=== PATIENT | female | born 1975 | race Caucasian/White ===

== ENCOUNTER 2017-03-25 20:25 | Inpatient (IN) | payer BC ==
[~2017-03-25] VITALS: Ht 167.6 cm; Wt 76.7 kg
[~2017-03-25 20:25] MED LIST: ACETAMINOPHEN 325 MG TAB PO PRN; AUGM500T7 PO; BENL120I IM; CHOLPOW PO; CYMB30CA PO; DEXILANT PO; DIAZ5TAB PO; DICY10CA12 PO; HYDR-3533 PO; LAMO25 PO; MAGNESIUM HYDROXIDE SUSP 30 ML CUP PO PRN; METF1000 PO; METO25TA3 PO; MYCO500 PO; PLAQ200T PO; PRED5TAB PO; PRIM50TA5 PO; SODIUM CHLOR 0.9% 1000 ML INJ 1,000 ML IV ONE; SODIUM CHLOR 0.9% 1000 ML INJ 1,000 ML IV SCH; SODIUM CHLORIDE 0.9% FLUSH 10 ML FLUSH IV FLUSH PRN; SPIR50TA PO; TRAM50TA PO; VALA500T PO; VIST50CA PO; ZYPR2.5T2 PO
[2017-03-25 20:30] VITALS: BP 143/96; PULSE 100; RESP 20; TEMP 97.8; O2SAT 95
[2017-03-25] MEDS: SODIUM CHLORIDE 0.9% FLUSH 10 ML FLUSH IV FLUSH SCH (21:57)
[2017-03-25 22:25] VITALS: O2SAT 99
[2017-03-25 22:55] LABS: LACTIC ACID GHOST NOT REPORTABLE
[2017-03-25] MEDS: ENOXAPARIN SODIUM 40 MG/0.4 ML SYRINGE SQ SCH (23:42)
[2017-03-25] MEDS: SODIUM CHLOR 0.9% 1000 ML INJ 1,000 ML IV SCH (23:43)
[2017-03-25] MEDS: PIPERACIL-TAZO 4.5 GM PREMIX 100 ML IV SCH (23:43)
[2017-03-26] VITALS: BP 156/96; PULSE 122; RESP 22; TEMP 97.1; O2SAT 100
[2017-03-26] MEDS: PRIMIDONE 50 MG TAB PO SCH ×4 (01:15→18:11)
[2017-03-26] MEDS: OLANZapine 2.5 MG TAB PO SCH ×2 (01:15→21:28)
[2017-03-26] MEDS: lamoTRIgine 25 MG TAB PO SCH ×3 (01:15→21:31)
[2017-03-26] MEDS: ONDANSETRON HCL 4 MG/2 ML VIAL IV PUSH PRN ×3 (01:23→21:29)
[2017-03-26] MEDS: MORPHINE SULFATE 4 MG/ML INJ IV PUSH PRN ×4 (01:26→21:29)
[2017-03-26] MEDS: PIPERACIL-TAZO 4.5 GM PREMIX 100 ML IV SCH ×4 (04:53→22:05)
[2017-03-26] MEDS: SODIUM CHLOR 0.9% 1000 ML INJ 1,000 ML IV SCH (04:54)
[2017-03-26 08:00] VITALS: BP 119/74; PULSE 110; RESP 18; TEMP 99.8; O2SAT 94
[2017-03-26] MEDS ORDERED: GLUCAGON 1 MG/ML VIAL OTHER PRN (08:30)
[2017-03-26] MEDS ORDERED: DEXTROSE 50% IN WATER 50 ML VIAL(D50) IV PRN (08:30)
--- NOTE | 2017-03-26 08:30 | HHI.HP ---
[facility] [place] [facility] Primary Care Physician Non-Staff Admission Diagnosis Diagnoses: (1) Severe sepsis Diagnosis: Principal (2) Abdominal pain Diagnosis: Principal (3) Diarrhea in adult patient Diagnosis: Principal (4) Lactic acidosis Diagnosis: Principal (5) Azotemia Diagnosis: Principal (6) Leukocytosis Diagnosis: Principal (7) Lupus Diagnosis: Secondary (8) Diabetes Diagnosis: Secondary (9) Hypertension Diagnosis: Secondary Chief Complaint: Abdominal pain Travel History International Travel<30 Days: No Contact w/Intl Traveler <30 Da: No Sepsis Criteria SIRS Criteria (2 or more): Heart rate over 90, WBC > 81512, < 4000 or > 10% bands Sepsis Criteria (SIRS+source): Infect source susp/known Severe Sepsis (+one): Lactate >2 Criteria Outcome: Meets severe sepsis criteria History of Present Illness Written by Adithya Lynn, acting as scribe for Dr. Ochoa on 03/26/17 at 08: 12. 41-year-old female with rather complex medical history with hypertension, diabetes, lupus, Raynaud syndrome, Sjgren syndrome, on immunosuppressive drugs who presented to ER because of acute worsening of abdominal discomfort. Patient indicates that she was originally treated for her condition Sunday of last week where she went to urgent care center and found to have sinusitis and hematuria. Patient was given a dose of Rocephin and followed with Augmentin. Patient states that her abdominal pain had been tolerable in the lower abdomen until yesterday morning when she was woke from sleep because of severe pain that started in her middle lower back and radiating around both flanks into her lower abdomen. The pain was a 10/10 on a pain scale. She indicates that the urgent care physician notified her that if her pain worsen that she should go to the emergency department. The patient states that the pain was a sharp pain. Without any crescendo type pain. She describes the pain as if she is giving . The patient indicates that she has had associated watery diarrhea, however she does not indicate that there is any foul smell. She has had nausea. Her diarrhea was associated with her bout of vomiting. She denies any fever, chills, hematochezia, melena. With the patient's rather complex autoimmune disorders. She indicates that she is in tune with her symptoms and usually knows when she is developing any type of infections. The patient indicates that she has had history of colitis with hematochezia in the past. She indicates that she just had a colonoscopy done 2 months ago and was told that she had some hemorrhoids. The patient also endorses some chest pain with deep breathing. She says it feels better when she leans forward. The patient had evaluation done emergency department found to have severe sepsis. Patient was admitted to the hospital for further evaluation and management. Review of Systems Constitutional: DENIES: Diaphoretic episodes, Fatigue, Fever, Weight gain, Weight loss, Chills, Dizziness, Change in appetite, Night Sweats Eyes: DENIES: Blurred vision, Diplopia, Eye inflammation, Eye pain, Vision loss , Double Vision Ears, nose, mouth, throat: DENIES: Vertigo, Nasal discharge, Throat pain, Ear Pain, Running Nose, Sinus Pain Respiratory: DENIES: Apneas, Cough, Snoring, Wheezing, Hemoptysis, Sputum production, Shortness of breath Cardiovascular: DENIES: Chest pain, Palpitations, Syncope, Dyspnea on Exertion , Lower Extremity Edema, Orthopnea Gastrointestinal: COMPLAINS OF: Abdominal pain, Diarrhea, Nausea, DENIES: Black stools, Bloody stools, Constipation, Vomiting, Difficulty Swallowing, Anorexia Neurologic: DENIES: Abnormal gait, Headache, Localized weakness, Paresthesias, Seizures, Speech Problems, Tremor, Poor Balance Past Family Social History Past Medical History Hypertension Diabetes Lupus Raynaud syndrome Sjgren disease History of colitis Pericarditis Past Surgical History Tonsillectomy Colonoscopy 2 months ago 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 Cholecystectomy Umbilical hernia repair Reported Medications Reported Meds & Active Scripts Active Reported Lortab (Hydrocodone-Acetaminophen) 5-325 Mg Tab 1 Tab PO Q4H PRN Benlysta Inj (Belimumab) 120 Mg Inj 170 Mg IM MONTHLY Cymbalta DR (Duloxetine HCl) 30 Mg Capdr 30 Mg PO DAILY Tramadol (Tramadol HCl) 50 Mg Tab 50 Mg PO BID PRN Diazepam 5 Mg Tab 5 Mg PO HS Cholestyramine (Bulk) 1 Powd 1 Pack PO BID Cellcept (Mycophenolate Mofetil) 500 Mg Tab 1,000 Mg PO HS Cellcept (Mycophenolate Mofetil) 500 Mg Tab 500 Mg PO AM Valacyclovir (Valacyclovir HCl) 500 Mg Tab 500 Mg PO DAILY Vistaril (Hydroxyzine Pamoate) 50 Mg Cap 100 Mg PO HS Metformin (Metformin HCl) 1,000 Mg Tab 1,000 Mg PO BIDPC With meals Dicyclomine (Dicyclomine HCl) 10 Mg Cap 10 Mg PO TID [Dexilant ] 50 Mg PO DAILY Metoprolol Tartrate 25 Mg Tab 25 Mg PO BID Plaquenil (Hydroxychloroquine Sulfate) 200 Mg Tab 200 Mg PO BID Take with food Zyprexa (Olanzapine) 2.5 Mg Tab 2.5 Mg PO HS Prednisone 5 Mg Tab 15 Mg PO DAILY Augmentin (Amoxicillin-Clavulanate) 500-125 mg Tab 500 Mg PO BID Primidone 50 Mg Tab 50 Mg PO TID Spironolactone 50 Mg Tab 50 Mg PO BIDPC Lamictal (Lamotrigine) 25 Mg Tab 50 Mg PO BID Allergies: Coded Allergies: Flu Vaccine (Verified Allergy, Severe, Anaphylaxis, 03/25/17) Mushroom (Verified Allergy, Severe, Anaphylaxis, 03/25/17) Gluten (Verified Allergy, Intermediate, N/V/D, 03/25/17) Sulfa (Verified Allergy, Unknown, LUPUS FLARE UP, 03/25/17) Family History Reviewed is significant for celiac disease, stroke on father's side of the family, heart disease in both sides of the family. Social History Patient denies any tobacco or illicit drugs. Patient does drink alcohol occasionally. Physical Exam Vital Signs Vital Signs Date Time Temp Pulse Resp B/P Pulse Ox O2 Delivery O2 Flow Rate FiO2 03/26/17 00:00 97.1 122 22 156/96 100 03/25/17 22:25 99 21 03/25/17 20:30 97.8 100 20 143/96 95 Physical Exam GENERAL: Well-developed, well-nourished, in no acute distress. alert and orientated HEENT: Head is normocephalic without any lesions or masses noted. Facial features are symmetric. Eyes: Pupils equal round reactive to light. Extraocular muscles are intact. Conjunctivae were clear. Oropharyngeal: Pharynx without any erythema edema. Tongue is midline without deviation. Buccal mucosa is moist without any masses or lesions NECK: Supple without any masses. Trachea midline no deviation. No JVD, no bruits are appreciated. Cervical lymphadenopathy appreciated. CARDIAC: Tachycardic. S1/S2 are heard. No murmurs gallops or rubs. LUNGS: Clear to auscultation bilaterally. No wheeze, rhonchi or rales. No use of accessory muscles on inspiration or expiration. ABDOMEN: Soft, no single point tenderness. Rather diffuse generalized tenderness.. Nondistended. Bowel sounds heard in all 4 quadrants. No organomegaly or masses. Negative rebound, negative guarding EXTREMITIES: No edema, pulses are equal bilaterally. No cyanosis or clubbing NEUROLOGY: Mood and affect appear appropriate. Cranial nerves II through XII grossly intact. Muscle strength 5/5 in upper and lower extremities bilaterally. Deep tendon reflexes are 2+ in upper and lower extremities bilaterally. Laboratory Laboratory Tests Test 03/25/17 03/26/17 20:49 01:20 Lactic Acid Level 3.5 3.5 Imaging Last Impressions Chest X-Ray 03/26/17 0000 Signed Impressions: Service Date/Time: Sunday, March 26, 2017 10:04 - CONCLUSION: No acute cardiopulmonary abnormality is identified. Shady García MD Septic Shock Reassessment Heart: Regular rate and rhythm Lungs: Clear Skin: Warm, Moist Peripheral Pulses: Bounding Right Radial Bounding Left Radial Capillary Refill: Brisk, <2 seconds Assessment and Plan Assessment and Plan Severe sepsis Patient criteria on admission with leukocytosis, bandemia, tachycardia, lactic acidosis, abdominal pain with an episode of watery diarrhea Patient was treated empirically with Zosyn. Will add Flagyl. Blood cultures are pending Urinalysis did not indicate any infection CT the abdomen does not indicate any acute abnormality indicative of infection Continue to trend lactic acid level Infectious disease has been consulted Hold [employer] for now. Continue Plaquenil and prednisone Abdominal pain, with watery diarrhea Unclear of etiology at this time. All etiology are still on the table to include infection, inflammatory, ischemia Continue pain control Gastroenterology has been consulted for recommendations CT scan does not indicate any significant abnormality other than 4.1 cm left ovarian cyst, small left inguinal hernia containing fat, small to moderate size hiatal hernia Many need to perform CTA/MRA for evaluation of ischemic bowel Check stool studies to include C. difficile, stool culture, stool WBCs, ova parasite Lactic acidosis Could be secondary to infection versus ischemia Continue trend lactic acid level. Improved Leukocytosis Could be secondary to chronic prednisone use, infection Continue monitor CBC Azotemia, unknown chronicity Water the patient states that she has been worked up with a poultry pinner and it may be secondary to lupus or diabetes. CT of the abdomen does not indicate any renal abnormality Continue IV fluids Monitor renal function Avoid nephrotoxins Diabetes Accu-Cheks with sliding scale insulin Check hemoglobin A1c Hypertension Continue home medications DVT prevention Lovenox, sequential compression devices Physician Certification 2 Midnight Certification Type: Admission for Inpatient Services Order for Inpatient Services The services are ordered in accordance with Medicare regulations or non- Medicare payer requirements, as applicable. In the case of services not specified as inpatient-only, they are appropriately provided as inpatient services in accordance with the 2-midnight benchmark. Estimated LOS (days): 2 days is the estimated time the patient will need to remain in the hospital, assuming treatment plan goals are met and no additional complications. Post-Hospital Plan: Not yet determined Notes: This note was transcribed by dave Lynn. I, Dr. Eyal Ochoa personally performed the history, physical exam, and medical decision making; and confirmed the accuracy of the information in the transcribed note. Authenticated by Dr. Eyal Ochoa on 03/26/17 at 12:11. Problem Qualifiers (1) Abdominal pain: Qualified Code: R10.84 - Generalized abdominal pain (2) Leukocytosis: Qualified Code: D72.825 - Bandemia (3) Lupus: Qualified Code: M32.9 - Systemic lupus erythematosus, unspecified SLE type, unspecified organ involvement status (4) Diabetes: Qualified Code: E11.8 - Type 2 diabetes mellitus with complication, without long-term current use of insulin (5) Hypertension: Qualified Code: I15.9 - Secondary hypertension Adithya Lynn March 26, 2017 08:30 Eyal Ochoa DO March 26, 2017 12:11
[2017-03-26 08:51] LABS: CHLORIDE 110 MEQ/L (98-107); POTASSIUM 3.8 MEQ/L (3.5-5.1); SODIUM (NA) 145 MEQ/L (136-145)
[2017-03-26 08:56] LABS: ANION GAP 10 MEQ/L (5-15); BICARBONATE 25.4 MEQ/L (21.0-32.0); BLOOD UREA NITROGEN 8 MG/DL (7-18)
[2017-03-26 08:59] LABS: ALT (GPT) 57 U/L (10-53); AST (GOT) 40 U/L (15-37); GLOMERULAR FILTRATION RATE 41 ML/MIN (>89)
[2017-03-26 09:00] LABS: TOTAL BILIRUBIN ADULT 0.6 MG/DL (0.2-1.0)
[2017-03-26 09:02] LABS: ALKALINE PHOSPHATASE 45 U/L (45-117)
[2017-03-26] MEDS: HYDROXYCHLOROQUINE SULFATE 200 MG TAB PO SCH ×2 (09:15→21:00)
[2017-03-26] MEDS ORDERED: MYCOPHENOLATE MOFETIL 500 MG TAB PO SCH ×2 (09:15→21:00)
--- NOTE | 2017-03-26 10:13 | RADHPO ---
EXAM DATE/TIME: 03/26/2017 10:04 [facility] COMPARISON: No previous studies available for comparison. INDICATIONS : Sepsis MEDICAL HISTORY : Systemic Lupus SURGICAL HISTORY : None. ENCOUNTER: [facility] ACUITY: 1 day PAIN SCORE: 0/10 LOCATION: FINDINGS: Portable AP view of the chest demonstrates a normal-sized cardiac silhouette. No effusion, consolidat ion, or pneumothorax is visualized. The bones and soft tissues demonstrate no acute abnormality. Lung s are underinflated. CONCLUSION: No acute cardiopulmonary abnormality is identified. Shady García MD on March 26, 2017 at 10:11 Board Certified Radiologist. This report was verified electronically.
[2017-03-26] MEDS: valACYclovir HCL 500 MG TAB PO SCH (10:34)
[2017-03-26] MEDS: METOPROLOL TARTRATE 25 MG TAB PO SCH ×2 (10:34→21:00)
[2017-03-26] MEDS: SODIUM CHLOR 0.45% 1000 ML INJ 1,000 ML IV SCH ×2 (10:34→18:00)
[2017-03-26] MEDS: metroNIDAZOLE 500 MG INJ 100 ML IV SCH ×2 (10:34→16:41)
[2017-03-26] MEDS: SODIUM CHLORIDE 0.9% FLUSH 10 ML FLUSH IV FLUSH SCH ×2 (10:35→21:00)
[2017-03-26] MEDS: predniSONE 5 MG TAB PO SCH (10:46)
[2017-03-26] MEDS: INSULIN ASPART SUPPLEMENTAL SCALE SQ SCH ×3 (11:00→21:00)
[2017-03-26 11:02] LABS: AUTOMATED NEUTROPHIL # 8.1 TH/MM3 (1.8-7.7); BASOPHIL % 0.4 % (0.0-2.0); EOSINOPHIL # 0.1 TH/MM3 (0-0.4); HEMATOCRIT 31.3 % (35.0-46.0); HEMO FLAGS DIFF FINAL; LYMPH % 20.1 % (9.0-44.0); LYMPHOCYTE # 2.3 TH/MM3 (1.0-4.8); MEAN CELL VOLUME 87.3 FL (80.0-100.0); MEAN CORPUSCULAR HGB CONC 33.3 % (32.0-36.0); MONO % 9.9 % (0.0-8.0); NEUT % 68.6 % (16.0-70.0); PLATELET COUNT 268 TH/MM3 (150-450); RED BLOOD COUNT 3.58 MIL/MM3 (4.00-5.30); RED CELL DISTRIBUTION WIDTH 13.6 % (11.6-17.2); WHITE BLOOD COUNT 11.6 TH/MM3 (4.0-11.0)
[2017-03-26 12:00] VITALS: BP 106/64; PULSE 107; RESP 18; TEMP 98.9; O2SAT 96
[2017-03-26] MEDS: DULoxetine HCl DR 30 MG CAP PO SCH (12:27)
[2017-03-26 16:00] VITALS: BP 108/80; PULSE 95; RESP 18; TEMP 97.9; O2SAT 94
--- NOTE | 2017-03-26 16:35 | PD.ID.CON ---
History of Present Illness Service ID Consult Requested By Dr Narayanan Reason for Consult severe sepsis Primary Care Physician Non-Staff Diagnoses: History of Present Illness 41 yo F with h/o severe lupus, on immunosuppression including prednisone and cellcept developped sudden onset abdominal crampy back pain and one episode of non bloody diarrea/ emesis No sick contacts + low grade fever on presentation W/u revealed lactic acidosis, sever leukcytosis, 19K+ + Hematuria x 4 weeks cystoscopy was unremarkable 2 wks ago cont to have hematuria CT A/P remarkable only for simple ovarian cyst, uncomplicated hernia, nothing acute Review of Systems Cardiovascular: COMPLAINS OF: Lower Extremity Edema Gastrointestinal: COMPLAINS OF: Abdominal pain, Diarrhea, Nausea, Vomiting Genitourinary: COMPLAINS OF: Hematuria Except as stated in HPI: all other systems reviewed are Neg Past Family Social History Allergies: Coded Allergies: Flu Vaccine (Verified Allergy, Severe, Anaphylaxis, 03/25/17) Mushroom (Verified Allergy, Severe, Anaphylaxis, 03/25/17) Gluten (Verified Allergy, Intermediate, N/V/D, 03/25/17) Sulfa (Verified Allergy, Unknown, LUPUS FLARE UP, 03/25/17) Past Medical History Hypertension Diabetes Lupus Raynaud syndrome Sjgren disease History of colitis Pericarditis Past Surgical History Tonsillectomy Colonoscopy 2 months ago 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 Social History No Tobacco. occasional social ETOH. No Illicit Drugs. Physical Exam Vital Signs Vital Signs Date Time Temp Pulse Resp B/P Pulse Ox O2 Delivery O2 Flow Rate FiO2 03/26/17 16:00 97.9 95 18 108/80 94 03/26/17 12:50 16 03/26/17 12:00 98.9 107 18 106/64 96 03/26/17 08:00 94 21 03/26/17 08:00 99.8 110 18 119/74 94 03/26/17 00:00 97.1 122 22 156/96 100 03/25/17 22:25 99 21 03/25/17 20:30 97.8 100 20 143/96 95 Physical Exam CONSTITUTIONAL/GENERAL: This is an obese nourished patient, in no apparent distress. TUBES/LINES/DRAINS: SKIN: No jaundice, rashes, or lesions. Ecchymoses on upper extremities. No wounds seen anteriorly. Skin temperature appropriate. Not diaphoretic. HEAD: Atraumatic. Normocephalic. EYES: Pupils equal and round and reactive. Extraocular motions intact. No scleral icterus. No injection or drainage. Fundi not examined. ENT: Hearing grossly normal. Nose without bleeding or purulent drainage. Throat without visible erythema, exudates, masses, or lesions. NECK: Trachea midline. Supple, nontender. CARDIOVASCULAR: Regular rate and rhythm without murmurs, gallops, or rubs. No JVD. Peripheral pulses symmetric. RESPIRATORY/CHEST: Symmetric, unlabored respirations. Clear to auscultation. Breath sounds equal bilaterally. No wheezes, rales, or rhonchi. GASTROINTESTINAL: Abdomen soft, non-tender, nondistended. No hepato-splenomegaly , or palpable masses. No guarding. Bowel sounds present. GENITOURINARY: Without palpable bladder distension. mild CTA tenderness b/l MUSCULOSKELETAL: Extremities without clubbing, cyanosis, + trace BLE edema. No joint tenderness or effusion noted. No calf tenderness. No mottling or clubbing. LYMPHATICS: No palpable cervical or supraclavicular adenopathy. NEUROLOGICAL: Awake and alert. Motor and sensory grossly within normal limits. Follows commands. Cognitively sharp. Clear speech Moves all extremities. PSYCHIATRIC: No obvious anxiety/depression. no apparent hallucinations or other psychotic thought process. Laboratory Laboratory Tests Test 03/25/17 03/26/17 03/26/17 03/26/17 20:49 01:20 07:04 10:47 Lactic Acid Level 3.5 3.5 1.8 Sodium Level 145 Potassium Level 3.8 Chloride Level 110 Carbon Dioxide Level 25.4 Anion Gap 10 Blood Urea Nitrogen 8 Creatinine 1.40 Estimat Glomerular Filtration 41 Rate Random Glucose 77 Calcium Level 7.9 Total Bilirubin 0.6 Aspartate Amino Transf 40 (AST/SGOT) Alanine Aminotransferase 57 (ALT/SGPT) Alkaline Phosphatase 45 Total Protein 6.0 Albumin 3.1 White Blood Count 11.6 Red Blood Count 3.58 Hemoglobin 10.4 Hematocrit 31.3 Mean Corpuscular Volume 87.3 Mean Corpuscular Hemoglobin 29.0 Mean Corpuscular Hemoglobin 33.3 Concent Red Cell Distribution Width 13.6 Platelet Count 268 Mean Platelet Volume 6.5 Neutrophils (%) (Auto) 68.6 Lymphocytes (%) (Auto) 20.1 Monocytes (%) (Auto) 9.9 Eosinophils (%) (Auto) 1.0 Basophils (%) (Auto) 0.4 Neutrophils # (Auto) 8.1 Lymphocytes # (Auto) 2.3 Monocytes # (Auto) 1.1 Eosinophils # (Auto) 0.1 Basophils # (Auto) 0.0 CBC Comment DIFF FINAL Differential Comment Troponin I 0.02 Result Diagram: 03/26/17 1047 03/26/17 0704 Imaging Last Impressions Chest X-Ray 03/26/17 0000 Signed Impressions: Service Date/Time: Sunday, March 26, 2017 10:04 - CONCLUSION: No acute cardiopulmonary abnormality is identified. Shady García MD Assessment and Plan Assessment and Plan Lupus, immunosuppressed Hematuria, liklely 2/2 gromeluronephritis, doubt UTI - - renal insufficiency - needs fu c mandrel maker; prob lupus nephritis Sepsis ? FUO: r/o infectious ethiology Acute gastrointestinal illness (nausea, vomiting , diarrhea) Recent abx exposure (1.5 week ago for acute sinusitis) - at risk for C.diff - agree with material handling equipment stevedore rec's to chk stool for pathogens, O&P, C.diff - avoid nephrotoxins - fu P w/u - dc zosyn if bl clx neg - change flagyl to Stacey Bolton MD March 26, 2017 16:35
--- NOTE | 2017-03-26 17:38 | MB ---
cc: LEONIDAS MERCEDES MD DATE OF CONSULTATION: 03/26/2017. REASON FOR CONSULTATION: Abdominal pain. HISTORY OF PRESENT ILLNESS: This is a 41-year-old female patient who has multiple medical conditions including systemic lupus erythematosus (SLE), hypertension, diabetes, Raynaud's phenomena, Sj gren's syndrome. She is chronically on immune suppressive medication including chronic use of steroid. She presented to the emergency room because of severe and sudden worsening of her abdominal pain. The pain was described as mostly in the loins bilaterally and radiating to her lower abdomen. This pain was described as colicky in nature. The pain was associated with bowel movement described as a little bit softer stool but no blood, mucus or undigested food. The stool was described otherwise as foul-smelling. The patient also complains of nausea and occasional vomiting. No fevers, chills or rigors. No other associated symptoms. The patient had similar episodes of abdominal pain in the past and was evaluated by gastroenterology from the [facility]. She had a colonoscopy several months ago and she was told it was totally normal. Subsequently she had another episode of similar abdominal pain and diarrhea where she had a CT scan that showed evidence of colitis as described by the patient. Her colitis was attributed to her lupus other than inflammatory bowel disease or infectious colitis. At the current time, the patient was found to be comfortable, but her abdominal pain is still recurring with less frequency and less in severity. GI consulted for further evaluation. REVIEW OF SYSTEMS: All fourteen elements in the review of systems negative except for the ones mentioned in the history of present illness. PAST MEDICAL HISTORY: 1. Hypertension. 2. Diabetes. 3. Lupus. 4. Raynaud's syndrome. 5. Sj gren's disease. 6. Colitis of unknown type. 7. Pericarditis. PAST SURGICAL HISTORY: 1. Tonsillectomy. 2. Colonoscopy within the last few months. 3. Mastectomy for left breast due to ductal abnormality. 4. Cholecystectomy. 5. Umbilical hernia repair. MEDICATIONS: 1. Cholestyramine. 2. CellCept. 3. Valacyclovir. 4. Metformin. 5. Tramadol. 6. Cymbalta. 7. Lortab. 8. Diazepam. 9. Dicyclomine. 10. Metoprolol. 11. Plaquenil. 12. Zyprexa. 13. Prednisolone. 14. Primidone. 15. Spironolactone. 16. Lamictal. ALLERGIES: 1. MUSHROOMS. 2. GLUTEN. 3. SULFA. FAMILY HISTORY: Significant for celiac disease, cerebrovascular disease in her father. PHYSICAL EXAMINATION: GENERAL: On examination, the patient was found to be comfortable, not in distress or in pain, hemodynamically stable. VITAL SIGNS: Stable. Blood pressure 140/95, respiratory rate of 18, pulse of 100, temperature of 97.8. HEAD AND NECK: Atraumatic and normocephalic. Pupils equal and reactive to light. Supple neck. No lymphadenopathy. No thyromegaly. CHEST: Clear to auscultation bilaterally. No crackles or wheezes. HEART: Regular rate and rhythm. No murmurs. ABDOMEN: Abdomen soft and nontender. No hepatosplenomegaly. No palpable masses. No rebound or rigidity. EXTREMITIES: Normal pulses. No edema. NEUROLOGICAL EXAMINATION: Nonfocal. Cranial nerves II through XII are grossly intact. No motor or sensory deficit. ASSESSMENT AND PLAN: A 41-year-old female patient who presented with the following problems: 1. Bilateral flank pain radiating to her lower abdomen of several months duration but recent worsening of her symptoms requiring immediate attention in the emergency room. 2. History of colitis by CT scan as reported to the patient. Colonoscopy two months ago reported as normal. 3. Chronic use of steroids and other immune-suppressive medications. 4. Multiple autoimmune disorders. RECOMMENDATIONS: Based on the above findings with a recent colitis by CT and negative for colonoscopy and chronic use of immune suppressive medication, would consider infectious colitis as the priority and more likely cause for her symptoms. 1. Will check stool for ova and parasites and white blood cells, Giardia antigen and C. Difficile. 2. Also will try to review chart from her previous workup and hospitalization in the [facility]. 3. Will defer any endoscopic evaluation or colonoscopic examination at the current time pending the above findings. 4. Meanwhile, continue supportive care, IV hydration, IV antibiotics as prescribed and labs on a daily basis to rule out electrolyte imbalance. Will follow up with you. Thank you for the consult. Leonidas KOVACS/TIMOTHY /2:32 PM /5:25 PM ZOHRA
[2017-03-26 20:00] VITALS: BP 95/69; PULSE 84; RESP 20; TEMP 98; O2SAT 96; O2SAT 97
[2017-03-26] MEDS: ENOXAPARIN SODIUM 40 MG/0.4 ML SYRINGE SQ SCH (21:28)
[2017-03-26] MEDS: metroNIDAZOLE 500 MG TAB PO SCH (22:05)
[2017-03-27] VITALS (8 sets, daily range): BP systolic 92–117; BP diastolic 60–76; PULSE 80–92; RESP 16–20; TEMP 97.2–98.7; O2SAT 93–100
[2017-03-27] MEDS: SODIUM CHLOR 0.45% 1000 ML INJ 1,000 ML IV SCH ×2 (01:10→05:44)
[2017-03-27] MEDS: PIPERACIL-TAZO 4.5 GM PREMIX 100 ML IV SCH ×3 (04:04→16:32)
[2017-03-27 04:37] LABS: C. DIFF EPI 027 PRESUMPTIVE NEGATIVE (NEGATIVE); C. DIFF TOXIN PCR NEGATIVE (NEGATIVE)
[2017-03-27 04:52] LABS: AUTOMATED NEUTROPHIL # 5.7 TH/MM3 (1.8-7.7); BASOPHIL % 0.4 % (0.0-2.0); EOSINOPHIL # 0.1 TH/MM3 (0-0.4); EOSINOPHIL % 0.7 % (0.0-4.0); HEMO FLAGS DIFF FINAL; LYMPH % 22.8 % (9.0-44.0); LYMPHOCYTE # 1.8 TH/MM3 (1.0-4.8); MEAN CELL VOLUME 88.2 FL (80.0-100.0); MEAN CORPUSCULAR HEMOGLOBIN 28.9 PG (27.0-34.0); MEAN CORPUSCULAR HGB CONC 32.7 % (32.0-36.0); MONO % 4.7 % (0.0-8.0); NEUT % 71.4 % (16.0-70.0); PLATELET COUNT 240 TH/MM3 (150-450); RED CELL DISTRIBUTION WIDTH 14.2 % (11.6-17.2)
[2017-03-27 05:11] LABS: POTASSIUM 3.1 MEQ/L (3.5-5.1)
[2017-03-27 05:16] LABS: BICARBONATE 25.3 MEQ/L (21.0-32.0)
[2017-03-27 05:17] LABS: MAGNESIUM 2.2 MG/DL (1.5-2.5)
[2017-03-27] MEDS: metroNIDAZOLE 500 MG TAB PO SCH ×3 (05:44→20:39)
[2017-03-27] MEDS: INSULIN ASPART SUPPLEMENTAL SCALE SQ SCH ×4 (06:00→20:39)
--- NOTE | 2017-03-27 08:30 | EKG ---
Date Performed: 03/26/2017 Time Performed: 12:20:56 PTAGE: 41 years EKG: Sinus rhythm Extensive ST-T changes may be due to myocardial ischemia Abnormal ECG NO PREVIOUS TRACING DOCTOR: Lon Wood Interpretating Date/Time 03/27/2017 08:29:06
[2017-03-27 08:31] LABS: HEMOGLOBIN A1a 0.9 %; HEMOGLOBIN Ao 86.2 %; HEMOGLOBIN LA1C 1.8 %
[2017-03-27] MEDS: HYDROXYCHLOROQUINE SULFATE 200 MG TAB PO SCH ×3 (09:00→20:40)
[2017-03-27] MEDS: lamoTRIgine 25 MG TAB PO SCH ×2 (09:53→20:38)
[2017-03-27] MEDS: valACYclovir HCL 500 MG TAB PO SCH (09:53)
[2017-03-27] MEDS: METOPROLOL TARTRATE 25 MG TAB PO SCH (09:53)
[2017-03-27] MEDS: predniSONE 5 MG TAB PO SCH (09:53)
[2017-03-27] MEDS: DULoxetine HCl DR 30 MG CAP PO SCH (09:53)
[2017-03-27] MEDS: PRIMIDONE 50 MG TAB PO SCH ×3 (09:53→16:31)
[2017-03-27] MEDS: ONDANSETRON HCL 4 MG/2 ML VIAL IV PUSH PRN ×2 (09:54→20:53)
[2017-03-27] MEDS: SODIUM CHLORIDE 0.9% FLUSH 10 ML FLUSH IV FLUSH SCH ×2 (09:54→20:40)
[2017-03-27] MEDS ORDERED: HYDROCORTISONE SOD SUCCINATE 100 MG VIAL IV PUSH SCH (11:45)
[2017-03-27] MEDS: POTASSIUM CHLORIDE 25 MEQ EFFERVESCENT TAB PO SCH ×2 (12:24→16:32)
--- NOTE | 2017-03-27 12:28 | HHI.PR ---
Subjective Remarks The patient had just worked with physical therapy. She said she got tired. She says in the past she hasn't done much physical therapy because she would have a hard time coming home from physical therapy because she would be too tired to drive. She says she is eating better today. She mentions her bowel movement had some red in it but she believes that is from the red Gatorade she is drinking. Discussed with nursing. Objective Vitals Vital Signs Date Time Temp Pulse Resp B/P Pulse Ox O2 Delivery O2 Flow Rate FiO2 03/27/17 10:55 16 03/27/17 08:27 97 21 03/27/17 08:00 98.2 92 16 92/63 93 03/27/17 04:05 80 100/70 03/27/17 00:00 97.6 91 20 96/60 97 Automatic Cuff 03/26/17 20:00 98.0 84 20 95/69 97 03/26/17 20:00 96 21 03/26/17 16:00 97.9 95 18 108/80 94 03/26/17 12:50 16 I/O 03/26/17 03/26/17 03/26/17 03/27/17 03/27/17 03/27/17 07:00 15:00 23:00 07:00 15:00 23:00 Intake Total 2280 ml 840 ml 720 ml 1886 ml 300 ml Output Total 2300 ml 600 ml 500 ml Balance -20 ml 240 ml 220 ml 1886 ml 300 ml Intake Oral 480 ml 840 ml 720 ml 300 ml IV Total 1800 ml 1886 ml Output Urine Total 2300 ml 600 ml 500 ml # Voids 2 1 0 # Bowel Movements 0 1 0 Result Diagram: 03/27/17 0423 03/27/17 0423 Imaging Last Impressions Chest X-Ray 03/26/17 0000 Signed Impressions: Service Date/Time: Sunday, March 26, 2017 10:04 - CONCLUSION: No acute cardiopulmonary abnormality is identified. Shady García MD Objective Remarks GENERAL: Well-developed, well-nourished, in no acute distress. HEENT: Head is normocephalic without any lesions or masses noted. Facial features are symmetric. Eyes: Pupils equal round reactive to light. Extraocular muscles are intact. Conjunctivae were clear. Oropharyngeal: Pharynx without any erythema edema. Tongue is midline without deviation. Buccal mucosa is moist without any masses or lesions NECK: Supple without any masses. Trachea midline no deviation. No JVD, no bruits are appreciated. Cervical lymphadenopathy appreciated. CARDIAC: Regular rate and rhythm. S1/S2 are heard. No murmurs gallops or rubs. LUNGS: Clear to auscultation bilaterally. No wheeze, rhonchi or rales. No use of accessory muscles on inspiration or expiration. ABDOMEN: Soft, nontender. Nondistended. Bowel sounds heard in all 4 quadrants. No organomegaly or masses. Negative rebound, negative guarding. EXTREMITIES: No edema, pulses are equal bilaterally. No cyanosis or clubbing NEUROLOGY: Cranial nerves II through XII grossly intact. Muscle strength 5/5 in upper and lower extremities bilaterally. PSYCH: Mood and affect appropriate. Medications and IVs Current Medications Medications (Trade) Dose Ordered Sig/Dilia Route Start Time Stop Time Status Last Admin (NS Flush) 2 ml UNSCH PRN IV FLUSH 03/25/17 18:45 (NS Flush) 2 ml BID IV FLUSH 03/25/17 21:00 03/27/17 09:54 (Tylenol) 650 mg Q4H PRN PO 03/25/17 18:45 03/27/17 09:54 (Lovenox Inj) 40 mg Q24H SQ 03/25/17 21:00 03/26/17 21:28 Magnesium Hydroxide 30 ml 30 ml Q12H PRN PO 03/25/17 18:45 03/26/17 22:05 (Zosyn 4.5 Gm Premix) 100 ml @ 200 mls/hr Q6H IV 03/25/17 22:00 03/27/17 09:58 (Morphine Inj) 2 mg Q3H PRN IV PUSH 03/25/17 22:15 03/26/17 21:29 ([place] 5-325 Mg) 1 tab Q6H PRN PO 03/25/17 22:15 (Zofran Inj) 4 mg Q6HR PRN IV PUSH 03/25/17 22:15 03/27/17 09:54 (LaMICtal) 50 mg BID PO 03/26/17 00:45 03/27/17 09:53 (ZyPREXA) 2.5 mg HS PO 03/26/17 00:45 03/26/17 21:28 (Mysoline) 50 mg TID PO 03/26/17 00:45 03/27/17 09:53 (D50w (Vial) Inj) 50 ml UNSCH PRN IV 03/26/17 08:30 (Glucagon Inj) 1 mg UNSCH PRN OTHER 03/26/17 08:30 (Cymbalta Dr) 30 mg DAILY PO 03/26/17 09:00 03/27/17 09:53 (Vistaril) 100 mg HS PO 03/26/17 21:00 (Lopressor) 25 mg BID PO 03/26/17 09:00 03/27/17 09:53 (Valtrex) 500 mg DAILY PO 03/26/17 09:00 03/27/17 09:53 (Plaquenil) 200 mg BID PO 03/26/17 09:15 (Flagyl) 500 mg Q8HR PO 03/26/17 22:00 03/27/17 05:44 (K-Lyte Cl Eff) 50 meq Q4H PO 03/27/17 12:00 03/27/17 16:01 (SoluCORTEF INJ) 50 mg Q8HR IV PUSH 03/27/17 14:00 A/P Problem List: (1) Severe sepsis ICD Code: A41.9 Status: Acute (2) Abdominal pain ICD Code: R10.9 Status: Acute (3) Diarrhea in adult patient ICD Code: R19.7 Status: Acute (4) Lactic acidosis ICD Code: E87.2 Status: Acute (5) Azotemia ICD Code: R79.89 Status: Acute (6) Leukocytosis ICD Code: D72.829 Status: Acute (7) Lupus ICD Code: M32.9 Status: Acute (8) Diabetes ICD Code: E11.9 Status: Acute (9) Hypertension ICD Code: I10 Status: Acute Assessment and Plan Severe sepsis Met criteria on admission with leukocytosis, bandemia, tachycardia, lactic acidosis, abdominal pain with an episode of watery diarrhea. Patient was treated empirically with Zosyn and Flagyl. Urinalysis did not indicate any infection. CT the abdomen does not indicate any acute abnormality indicative of infection. Lactic acid level normalized. Infectious disease consult appreciated. - antibiotics per ID. Abdominal pain with watery diarrhea Unclear of etiology at this time. Gastroenterology consult appreciated. Possible colitis. CT scan does not indicate any significant abnormality other than 4.1 cm left ovarian cyst, small left inguinal hernia containing fat, small to moderate size hiatal hernia. C diff negative. - Check stool studies to include stool culture, stool WBCs, ova parasite. - follow up with GI. Renal insufficiency The pt has been worked up by a electronic security technician and it may be secondary to lupus or diabetes. CT of the abdomen does not indicate any renal abnormality. - S/p IV fluids. Improved. - Avoid nephrotoxins. Diabetes A1c 4.9%. - Accu-Cheks with sliding scale insulin. Hypotension May be s/t infection. On immunosuppressive agents. - stress dose steroids. - hold Lopressor. Anemia Chronic. The patient has had red stools. - Check iron studies, B12, folate level and Hemoccult. - Follow CBC and transfuse as needed. Weakness Likely secondary to multiple chronic conditions. - PT/ OT. DVT prevention Lovenox, sequential compression devices Discharge Planning Awaiting clinical improvement. Problem Qualifiers (1) Abdominal pain: Qualified Code: R10.84 - Generalized abdominal pain (2) Leukocytosis: Qualified Code: D72.825 - Bandemia (3) Lupus: Qualified Code: M32.9 - Systemic lupus erythematosus, unspecified SLE type, unspecified organ involvement status (4) Diabetes: Qualified Code: E11.8 - Type 2 diabetes mellitus with complication, without long-term current use of insulin (5) Hypertension: Qualified Code: I15.9 - Secondary hypertension Eyal Ochoa DO March 27, 2017 12:27 Eyal Ochoa DO March 27, 2017 12:27
[2017-03-27] MEDS: HYDROCORTISONE SOD SUCCINATE 100 MG VIAL IV PUSH SCH ×2 (13:08→20:36)
[2017-03-27] MEDS: MORPHINE SULFATE 4 MG/ML INJ IV PUSH PRN ×2 (13:15→20:53)
[2017-03-27 14:53] LABS: FERRITIN 127 NG/ML (8-252); TRANSFERRIN IRON PROFILE 173 MG/DL (200-360)
[2017-03-27] MEDS ORDERED: CYANOCOBALAMIN 1000 MCG/ML VIAL IM ONE (16:00)
--- NOTE | 2017-03-27 18:13 | HHI.IDPN ---
Subjective Subjective Remarks ID FU DR BEASLEY ABD CRAMPING BETTER STILL LOOSE STOOLS DIARRHEA X 2 TODAY OVERALL IMPROVED (Erika Recinos) Remarks Reviewed history and note (Gricelda Beasley MD) Allergies: Coded Allergies: Flu Vaccine (Verified Allergy, Severe, Anaphylaxis, 03/25/17) Mushroom (Verified Allergy, Severe, Anaphylaxis, 03/25/17) Gluten (Verified Allergy, Intermediate, N/V/D, 03/25/17) Sulfa (Verified Allergy, Unknown, LUPUS FLARE UP, 03/25/17) Objective . Vital Signs Date Time Temp Pulse Resp B/P Pulse Ox O2 Delivery O2 Flow Rate FiO2 03/27/17 16:00 97.4 88 18 108/76 95 03/27/17 13:20 16 03/27/17 12:00 98.7 89 18 107/74 97 03/27/17 10:55 16 03/27/17 08:27 97 21 03/27/17 08:00 98.2 92 16 92/63 93 03/27/17 04:05 80 100/70 03/27/17 00:00 97.6 91 20 96/60 97 Automatic Cuff 03/26/17 20:00 98.0 84 20 95/69 97 03/26/17 20:00 96 21 03/26/17 03/26/17 03/27/17 15:00 23:00 07:00 Intake Total 840 ml 720 ml 1886 ml Output Total 600 ml 500 ml Balance 240 ml 220 ml 1886 ml Intake Oral 840 ml 720 ml IV Total 1886 ml Output Urine Total 600 ml 500 ml # Voids 1 # Bowel Movements 1 . Laboratory Tests Test 03/26/17 03/27/17 10:47 04:23 White Blood Count 11.6 TH/MM3 8.0 TH/MM3 Red Blood Count 3.58 MIL/MM3 3.40 MIL/MM3 Hemoglobin 10.4 GM/DL 9.8 GM/DL Hematocrit 31.3 % 30.0 % Mean Corpuscular Volume 87.3 FL 88.2 FL Mean Corpuscular Hemoglobin 29.0 PG 28.9 PG Mean Corpuscular Hemoglobin 33.3 % 32.7 % Concent Red Cell Distribution Width 13.6 % 14.2 % Platelet Count 268 TH/MM3 240 TH/MM3 Mean Platelet Volume 6.5 FL 6.8 FL Neutrophils (%) (Auto) 68.6 % 71.4 % Lymphocytes (%) (Auto) 20.1 % 22.8 % Monocytes (%) (Auto) 9.9 % 4.7 % Eosinophils (%) (Auto) 1.0 % 0.7 % Basophils (%) (Auto) 0.4 % 0.4 % Neutrophils # (Auto) 8.1 TH/MM3 5.7 TH/MM3 Lymphocytes # (Auto) 2.3 TH/MM3 1.8 TH/MM3 Monocytes # (Auto) 1.1 TH/MM3 0.4 TH/MM3 Eosinophils # (Auto) 0.1 TH/MM3 0.1 TH/MM3 Basophils # (Auto) 0.0 TH/MM3 0.0 TH/MM3 CBC Comment DIFF FINAL DIFF FINAL Differential Comment Laboratory Tests Test 03/25/17 03/26/17 03/26/17 03/26/17 20:49 01:20 07:04 10:47 Lactic Acid Level 3.5 mmol/L 3.5 mmol/L 1.8 mmol/L Sodium Level 145 MEQ/L Potassium Level 3.8 MEQ/L Chloride Level 110 MEQ/L Carbon Dioxide Level 25.4 MEQ/L Anion Gap 10 MEQ/L Blood Urea Nitrogen 8 MG/DL Creatinine 1.40 MG/DL Estimat Glomerular Filtration 41 ML/MIN Rate Random Glucose 77 MG/DL Calcium Level 7.9 MG/DL Total Bilirubin 0.6 MG/DL Aspartate Amino Transf 40 U/L (AST/SGOT) Alanine Aminotransferase 57 U/L (ALT/SGPT) Alkaline Phosphatase 45 U/L Total Protein 6.0 GM/DL Albumin 3.1 GM/DL Troponin I 0.02 NG/ML Hemoglobin A1c 4.9 % Test 03/26/17 03/27/17 16:30 04:23 Troponin I LESS THAN 0.02 0.03 NG/ML NG/ML Sodium Level 145 MEQ/L Potassium Level 3.1 MEQ/L Chloride Level 111 MEQ/L Carbon Dioxide Level 25.3 MEQ/L Anion Gap 9 MEQ/L Blood Urea Nitrogen 7 MG/DL Creatinine 0.99 MG/DL Estimat Glomerular Filtration 62 ML/MIN Rate Random Glucose 106 MG/DL Calcium Level 7.6 MG/DL Magnesium Level 2.2 MG/DL Iron Level 66 MCG/DL Total Iron Binding Capacity 242 MCG/DL Percent Iron Saturation 27.3 % Ferritin 127 NG/ML Vitamin B12 Level 296 PG/ML Folate 10.1 NG/ML Microbiology Date/Time Procedure Status Source Growth 03/26/17 23:14 Received Stool Stool Pending 03/26/17 23:14 Cryptosporidium Exam - Final Complete Stool Stool NEGATIVE - NO CRYPTOSPORIDIUM ANTIGEN... 03/26/17 23:14 Stool Pus (RADHA) - Final Complete Stool Stool RARE WBC 03/26/17 23:14 Giardia Antigen (RADHA) - Final Complete Stool Stool NEGATIVE - NO GIARDIA ANTIGEN DETECTE... 03/26/17 23:14 Cancelled Stool Stool Physical Exam ONSTITUTIONAL/GENERAL: This is an obese nourished patient, in no apparent distress. TUBES/LINES/DRAINS: SKIN: No jaundice, rashes, or lesions. Ecchymoses on upper extremities. No wounds seen anteriorly. Skin temperature appropriate. Not diaphoretic. HEAD: Atraumatic. Normocephalic. EYES: Pupils equal and round and reactive. Extraocular motions intact. No scleral icterus. No injection or drainage. Fundi not examined. ENT: Hearing grossly normal. Nose without bleeding or purulent drainage. Throat without visible erythema, exudates, masses, or lesions. NECK: Trachea midline. Supple, nontender. CARDIOVASCULAR: Regular rate and rhythm without murmurs, gallops, or rubs. No JVD. Peripheral pulses symmetric. RESPIRATORY/CHEST: Symmetric, unlabored respirations. Clear to auscultation. Breath sounds equal bilaterally. No wheezes, rales, or rhonchi. GASTROINTESTINAL: Abdomen soft, non-tender, nondistended. No hepato-splenomegaly , or palpable masses. No guarding. Bowel sounds present. GENITOURINARY: Without palpable bladder distension. mild CTA tenderness b/l MUSCULOSKELETAL: Extremities without clubbing, cyanosis, + trace BLE edema. No joint tenderness or effusion noted. No calf tenderness. No mottling or clubbing. LYMPHATICS: No palpable cervical or supraclavicular adenopathy. NEUROLOGICAL: Awake and alert. Motor and sensory grossly within normal limits. Follows commands. Cognitively sharp. Clear speech Moves all extremities. PSYCHIATRIC: No obvious anxiety/depression. no apparent hallucinations or other psychotic thought process. (Erika Recinos) Assessment & Plan Diagnosis: (1) Colitis Plan: CONTINUE FLAGYL STOOL NEGATIVE (2) Diarrhea in adult patient (3) Sjoegren syndrome (4) Raynauds syndrome (5) Pyelonephritis Plan: ON ZOSYN MAY BE ABLE TO DO PO ON DC WILL FU SEEN EXAM WITH DR BEASLEY (Erika Recinos) Diagnosis: (1) Colitis Plan: CONTINUE FLAGYL STOOL NEGATIVE (2) Diarrhea in adult patient (3) Sjoegren syndrome (4) Raynauds syndrome Remarks UA abnormal ? secondary to GN. Can stop Zosyn. Repeat UAC (Gricelda Beasley MD) Erika Recinos March 27, 2017 18:13 Gricelda Beasley MD March 27, 2017 18:36
--- NOTE | 2017-03-27 19:54 | HHI.GIFU ---
Subjective Remarks feels better, less pain, minimal diarrhea, no GI bleed. Objective Vitals I&O Vital Signs Date Time Temp Pulse Resp B/P Pulse Ox O2 Delivery O2 Flow Rate FiO2 03/27/17 16:00 97.4 88 18 108/76 95 03/27/17 13:20 16 03/27/17 12:00 98.7 89 18 107/74 97 03/27/17 10:55 16 03/27/17 08:27 97 21 03/27/17 08:00 98.2 92 16 92/63 93 03/27/17 04:05 80 100/70 03/27/17 00:00 97.6 91 20 96/60 97 Automatic Cuff 03/26/17 20:00 98.0 84 20 95/69 97 03/26/17 20:00 96 21 I/O 03/26/17 03/26/17 03/26/17 03/27/17 03/27/17 03/27/17 07:00 15:00 23:00 07:00 15:00 23:00 Intake Total 2280 ml 840 ml 720 ml 1886 ml 300 ml Output Total 2300 ml 600 ml 500 ml 950 ml Balance -20 ml 240 ml 220 ml 1886 ml -650 ml Intake Oral 480 ml 840 ml 720 ml 300 ml IV Total 1800 ml 1886 ml Output Urine Total 2300 ml 600 ml 500 ml 950 ml # Voids 2 1 0 # Bowel Movements 0 1 1 Laboratory Laboratory Tests Test 03/26/17 03/27/17 23:14 04:23 Eosinophil Stool Smear NONE SEEN Stool C. difficile Toxin (PCR) NEGATIVE Stl C. difficile Toxin PRESUMPTIVE Epiderm 027 NEGATIVE White Blood Count 8.0 Red Blood Count 3.40 Hemoglobin 9.8 Hematocrit 30.0 Mean Corpuscular Volume 88.2 Mean Corpuscular Hemoglobin 28.9 Mean Corpuscular Hemoglobin 32.7 Concent Red Cell Distribution Width 14.2 Platelet Count 240 Mean Platelet Volume 6.8 Neutrophils (%) (Auto) 71.4 Lymphocytes (%) (Auto) 22.8 Monocytes (%) (Auto) 4.7 Eosinophils (%) (Auto) 0.7 Basophils (%) (Auto) 0.4 Neutrophils # (Auto) 5.7 Lymphocytes # (Auto) 1.8 Monocytes # (Auto) 0.4 Eosinophils # (Auto) 0.1 Basophils # (Auto) 0.0 CBC Comment DIFF FINAL Differential Comment Sodium Level 145 Potassium Level 3.1 Chloride Level 111 Carbon Dioxide Level 25.3 Anion Gap 9 Blood Urea Nitrogen 7 Creatinine 0.99 Estimat Glomerular Filtration 62 Rate Random Glucose 106 Calcium Level 7.6 Magnesium Level 2.2 Iron Level 66 Total Iron Binding Capacity 242 Percent Iron Saturation 27.3 Ferritin 127 Troponin I 0.03 Vitamin B12 Level 296 Folate 10.1 Date/Time Procedure Status Source Growth 03/26/17 23:14 Cryptosporidium Exam - Final Complete Stool Stool NEGATIVE - NO CRYPTOSPORIDIUM ANTIGEN... 03/26/17 23:14 Stool Pus (RADHA) - Final Complete Stool Stool RARE WBC 03/26/17 23:14 Giardia Antigen (RADHA) - Final Complete Stool Stool NEGATIVE - NO GIARDIA ANTIGEN DETECTE... 03/26/17 23:14 Received Stool Stool Pending 03/26/17 23:14 Cancelled Stool Stool Physical Exam HEENT: Pupils round and reactive to light; normocephalic; atraumatic; no jaundice. Throat is clear. NECK: Neck is supple, no JVD, no lymphadenopathy. CHEST: Chest is clear to auscultation and percussion. CARDIAC: Regular rate and rhythm with no murmur gallop or rubs. ABDOMEN: Soft, nondistended, nontender; no hepatosplenomegaly; bowel sounds are present in all four quadrants. EXTREMITIES: No clubbing, cyanosis, or edema. SKIN: Normal; no rash; no jaundice. MEDICAL STAFFING COORDINATOR: No focal deficits; alert and oriented times three. Assessment and Plan Plan patient has Lupus on multiple immune suppressive therapy, possible infections colitis, had colonoscopy negative few months ago. doing better with antibiotic, we will continue current care diet as tolerated. Leander Aguilar MD March 27, 2017 19:54
[2017-03-27] MEDS: ENOXAPARIN SODIUM 40 MG/0.4 ML SYRINGE SQ SCH (20:35)
[2017-03-27] MEDS: OLANZapine 2.5 MG TAB PO SCH (20:40)
[2017-03-28] VITALS: BP 133/92; PULSE 76; RESP 20; TEMP 98.3; O2SAT 98
[2017-03-28] MEDS: MORPHINE SULFATE 4 MG/ML INJ IV PUSH PRN ×4 (00:51→18:10)
[2017-03-28] MEDS: ONDANSETRON HCL 4 MG/2 ML VIAL IV PUSH PRN ×3 (04:21→18:10)
[2017-03-28] MEDS: HYDROCORTISONE SOD SUCCINATE 100 MG VIAL IV PUSH SCH ×3 (05:55→18:11)
[2017-03-28] MEDS: metroNIDAZOLE 500 MG TAB PO SCH ×3 (05:55→21:32)
[2017-03-28] MEDS: INSULIN ASPART SUPPLEMENTAL SCALE SQ SCH ×4 (05:56→21:42)
[2017-03-28 08:00] VITALS: BP 145/95; PULSE 77; RESP 18; TEMP 98.3; O2SAT 96
[2017-03-28] MEDS: valACYclovir HCL 500 MG TAB PO SCH (08:54)
[2017-03-28] MEDS: SODIUM CHLORIDE 0.9% FLUSH 10 ML FLUSH IV FLUSH SCH ×2 (08:54→21:36)
[2017-03-28] MEDS: PRIMIDONE 50 MG TAB PO SCH ×3 (08:54→18:11)
[2017-03-28] MEDS: HYDROXYCHLOROQUINE SULFATE 200 MG TAB PO SCH ×2 (08:55→21:00)
[2017-03-28] MEDS: lamoTRIgine 25 MG TAB PO SCH ×2 (08:55→21:32)
[2017-03-28] MEDS: DULoxetine HCl DR 30 MG CAP PO SCH (08:55)
[2017-03-28] MEDS: ACETAMINOPHEN/HYDROcodone 325 MG/5 MG TAB PO PRN (09:02)
--- NOTE | 2017-03-28 09:39 | EKG ---
Date Performed: 03/27/2017 Time Performed: 12:17:32 PTAGE: 41 years EKG: Sinus rhythm . Possible anterior infarct - age undetermined Lateral ST-T changes are nonspecific Abnormal ECG PREVIOUS TRACING : 03/26/2017 12.20 DOCTOR: Idris Zuleta Interpretating Date/Time 03/28/2017 09:38:00
--- NOTE | 2017-03-28 11:55 | HHI.PR ---
Subjective Remarks Follow-up sepsis and gastroenteritis. Patient has multiple complaints. States she still having loose stools because she's not on her home medication cholestyramine. 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 Also complains of knots in the right forearm where she had failed IV access attempt. She also has guaiac-positive stool no gross bleeding reports of negative EGD and colonoscopy 6-8 months ago. She has hemorrhoids. Discussed with RN Objective Vitals Vital Signs Date Time Temp Pulse Resp B/P Pulse Ox O2 Delivery O2 Flow Rate FiO2 03/28/17 08:00 98.3 77 18 145/95 96 03/28/17 04:26 20 03/28/17 00:00 98.3 76 20 133/92 98 Manual Cuff/Auscultation 03/28/17 00:00 98.3 76 20 133/92 98 Manual Cuff/Auscultation 03/27/17 22:25 97 21 03/27/17 20:00 97.2 90 20 117/70 100 Manual Cuff/Auscultation 03/27/17 16:00 97.4 88 18 108/76 95 03/27/17 12:00 98.7 89 18 107/74 97 I/O 03/27/17 03/27/17 03/27/17 03/28/17 03/28/17 03/28/17 07:00 15:00 23:00 07:00 15:00 23:00 Intake Total 1886 ml 300 ml 240 ml 2160 ml Output Total 950 ml 900 ml 850 ml Balance 1886 ml -650 ml -660 ml 1310 ml Intake Oral 300 ml 240 ml 480 ml IV Total 1886 ml 1680 ml Output Urine Total 950 ml 900 ml 850 ml # Voids 0 2 # Bowel Movements 1 2 1 Result Diagram: 03/27/17 0423 03/27/17 0423 Imaging Last Impressions Chest X-Ray 03/26/17 0000 Signed Impressions: Service Date/Time: Sunday, March 26, 2017 10:04 - CONCLUSION: No acute cardiopulmonary abnormality is identified. Shady García MD Objective Remarks GENERAL: Well-developed, well-nourished, in no acute distress. Skin: Maculopapular rash in the bilateral cheeks and bilateral upper arms HEENT: Head is normocephalic without any lesions or masses noted. Facial features are symmetric. Eyes: Pupils equal round reactive to light. Extraocular muscles are intact. Conjunctivae were clear. Oropharyngeal: Pharynx without any erythema edema. Tongue is midline without deviation. Buccal mucosa is moist without any masses or lesions NECK: Supple without any masses. Trachea midline no deviation. No JVD, no bruits are appreciated. Cervical lymphadenopathy appreciated. CARDIAC: Regular rate and rhythm. S1/S2 are heard. No murmurs gallops or rubs. LUNGS: Clear to auscultation bilaterally. No wheeze, rhonchi or rales. No use of accessory muscles on inspiration or expiration. ABDOMEN: Soft, nontender. Nondistended. Bowel sounds heard in all 4 quadrants. Negative rebound, negative guarding. EXTREMITIES: No edema, pulses are equal bilaterally. No cyanosis or clubbing NEUROLOGY: Cranial nerves II through XII grossly intact. Muscle strength 5/5 in upper and lower extremities bilaterally. PSYCH: Mood and affect appropriate. Procedures none A/P Problem List: (1) Severe sepsis ICD Code: A41.9 Status: Acute (2) Abdominal pain ICD Code: R10.9 Status: Acute (3) Diarrhea in adult patient ICD Code: R19.7 Status: Acute (4) Lactic acidosis ICD Code: E87.2 Status: Resolved (5) Azotemia ICD Code: R79.89 Status: Resolved (6) Leukocytosis ICD Code: D72.829 Status: Resolved (7) Lupus ICD Code: M32.9 Status: Acute (8) Diabetes ICD Code: E11.9 Status: Chronic (9) Hypertension ICD Code: I10 Status: Chronic Assessment and Plan Severe sepsis Met criteria on admission with leukocytosis, bandemia, tachycardia, lactic acidosis, abdominal pain with an episode of watery diarrhea. Patient was treated empirically with Zosyn and Flagyl. Urinalysis did not indicate any infection. CT the abdomen does not indicate any acute abnormality indicative of infection. Lactic acid level normalized. Infectious disease consult appreciated. - antibiotics per ID switched to by mouth Flagyl. - CellCept on hold" patient refusing to take secondary to ongoing infection Abdominal pain with watery diarrhea Unclear of etiology at this time. Gastroenterology consult appreciated. Possible colitis. CT scan does not indicate any significant abnormality other than 4.1 cm left ovarian cyst, small left inguinal hernia containing fat, small to moderate size hiatal hernia. C diff negative. - Check stool studies to include stool culture, stool WBCs, ova parasite negative to date. - follow up with GI. Renal insufficiency The pt has been worked up by a component prep operator and it may be secondary to lupus or diabetes. CT of the abdomen does not indicate any renal abnormality. - S/p IV fluids. Improved. - Avoid nephrotoxins. Diabetes A1c 4.9%. - Accu-Cheks with sliding scale insulin. Hypotension May be s/t infection. On immunosuppressive agents. - Resolved plan to wean stress dose steroids but because of possible lupus flare we'll continue current dose. -Restart Lopressor with hold parameters Anemia Chronic. The patient has had red stools. -Guaiac positive. History of hemorrhoids. Recent EGD and colonoscopy unremarkable per patient. GI following. - Follow CBC and transfuse as needed. Weakness Likely secondary to multiple chronic conditions. - PT/ OT. DVT prevention Discontinued Lovenox secondary to bleeding, continue sequential compression devices Discharge Planning Possible discharge in 1-2 days Problem Qualifiers (1) Abdominal pain: Qualified Code: R10.84 - Generalized abdominal pain (2) Leukocytosis: Qualified Code: D72.825 - Bandemia (3) Lupus: Qualified Code: M32.9 - Systemic lupus erythematosus, unspecified SLE type, unspecified organ involvement status (4) Diabetes: Qualified Code: E11.8 - Type 2 diabetes mellitus with complication, without long-term current use of insulin (5) Hypertension: Qualified Code: I15.9 - Secondary hypertension Morris Garza MD March 28, 2017 11:55 Plan A/P Problem List: (1) Severe sepsis ICD Code: A41.9 Status: Acute (2) Abdominal pain ICD Code: R10.9 Status: Acute (3) Diarrhea in adult patient ICD Code: R19.7 Status: Acute (4) Lactic acidosis ICD Code: E87.2 Status: Acute (5) Azotemia ICD Code: R79.89 Status: Acute (6) Leukocytosis ICD Code: D72.829 Status: Acute (7) Lupus ICD Code: M32.9 Status: Acute (8) Diabetes ICD Code: E11.9 Status: Acute (9) Hypertension ICD Code: I10 Status: Acute Assessment and Plan A/P Problem List: (1) Severe sepsis ICD Code: A41.9 Status: Acute (2) Abdominal pain ICD Code: R10.9 Status: Acute (3) Diarrhea in adult patient ICD Code: R19.7 Status: Acute (4) Lactic acidosis ICD Code: E87.2 Status: Acute (5) Azotemia ICD Code: R79.89 Status: Acute (6) Leukocytosis ICD Code: D72.829 Status: Acute (7) Lupus ICD Code: M32.9 Status: Acute (8) Diabetes ICD Code: E11.9 Status: Acute (9) Hypertension ICD Code: I10 Status: Acute Assessment and Plan Severe sepsis Met criteria on admission with leukocytosis, bandemia, tachycardia, lactic acidosis, abdominal pain with an episode of watery diarrhea. Patient was treated empirically with Zosyn and Flagyl. Urinalysis did not indicate any infection. CT the abdomen does not indicate any acute abnormality indicative of infection. Lactic acid level normalized. Infectious disease consult appreciated. - antibiotics per ID. Abdominal pain with watery diarrhea Unclear of etiology at this time. Gastroenterology consult appreciated. Possible colitis. CT scan does not indicate any significant abnormality other than 4.1 cm left ovarian cyst, small left inguinal hernia containing fat, small to moderate size hiatal hernia. C diff negative. - Check stool studies to include stool culture, stool WBCs, ova parasite. - follow up with GI. Renal insufficiency The pt has been worked up by a component prep operator and it may be secondary to lupus or diabetes. CT of the abdomen does not indicate any renal abnormality. - S/p IV fluids. Improved. - Avoid nephrotoxins. Diabetes A1c 4.9%. - Accu-Cheks with sliding scale insulin. Hypotension May be s/t infection. On immunosuppressive agents. - stress dose steroids. - hold Lopressor. Anemia Chronic. The patient has had red stools. - Check iron studies, B12, folate level and Hemoccult. - Follow CBC and transfuse as needed. Weakness Likely secondary to multiple chronic conditions. - PT/ OT. DVT prevention Lovenox, sequential compression devices Problem Qualifiers (1) Abdominal pain: Qualified Code: R10.84 - Generalized abdominal pain (2) Leukocytosis: Qualified Code: D72.825 - Bandemia (3) Lupus: Qualified Code: M32.9 - Systemic lupus erythematosus, unspecified SLE type, unspecified organ involvement status (4) Diabetes: Qualified Code: E11.8 - Type 2 diabetes mellitus with complication, without long-term current use of insulin (5) Hypertension: Qualified Code: I15.9 - Secondary hypertension Morris Garza MD March 28, 2017 11:55
[2017-03-28 12:00] VITALS: BP 133/87; PULSE 85; RESP 18; TEMP 98.6; O2SAT 97
[2017-03-28 12:37] LABS: HEMATOCRIT 32.2 % (35.0-46.0); MEAN CELL VOLUME 88.7 FL (80.0-100.0); MEAN CORPUSCULAR HEMOGLOBIN 28.7 PG (27.0-34.0); MEAN CORPUSCULAR HGB CONC 32.4 % (32.0-36.0); PLATELET COUNT 310 TH/MM3 (150-450); RED BLOOD COUNT 3.63 MIL/MM3 (4.00-5.30); RED CELL DISTRIBUTION WIDTH 14.3 % (11.6-17.2); REVIEW FLAG FINAL; WHITE BLOOD COUNT 10.8 TH/MM3 (4.0-11.0)
[2017-03-28 12:38] LABS: POTASSIUM 3.6 MEQ/L (3.5-5.1)
[2017-03-28 12:46] LABS: BICARBONATE 25.2 MEQ/L (21.0-32.0); MAGNESIUM 2.5 MG/DL (1.5-2.5)
[2017-03-28] MEDS: CHOLESTYRAMINE 4 GM PACKET PO SCH ×2 (12:56→21:32)
[2017-03-28] MEDS ORDERED: POTASSIUM CHLORIDE 10 MEQ CONTROLLED RELEASE TAB PO ONE (14:45)
[2017-03-28 16:00] VITALS: BP 135/81; PULSE 84; RESP 18; TEMP 98.2; O2SAT 98
--- NOTE | 2017-03-28 17:54 | HHI.IDPN ---
Subjective Subjective Remarks Id Fu Dr Christensen having frequent stools today feels she may be cross contaminanting Allergies: Coded Allergies: Flu Vaccine (Verified Allergy, Severe, Anaphylaxis, 03/25/17) Mushroom (Verified Allergy, Severe, Anaphylaxis, 03/25/17) Gluten (Verified Allergy, Intermediate, N/V/D, 03/25/17) Sulfa (Verified Allergy, Unknown, LUPUS FLARE UP, 03/25/17) Objective . Vital Signs Date Time Temp Pulse Resp B/P Pulse Ox O2 Delivery O2 Flow Rate FiO2 03/28/17 16:00 98.2 84 18 135/81 98 03/28/17 12:00 98.6 85 18 133/87 97 03/28/17 08:00 98.3 77 18 145/95 96 03/28/17 04:26 20 03/28/17 00:00 98.3 76 20 133/92 98 Manual Cuff/Auscultation 03/28/17 00:00 98.3 76 20 133/92 98 Manual Cuff/Auscultation 03/27/17 22:25 97 21 03/27/17 20:00 97.2 90 20 117/70 100 Manual Cuff/Auscultation 03/27/17 03/27/17 03/28/17 15:00 23:00 07:00 Intake Total 300 ml 240 ml 2160 ml Output Total 950 ml 900 ml 850 ml Balance -650 ml -660 ml 1310 ml Intake Oral 300 ml 240 ml 480 ml IV Total 1680 ml Output Urine Total 950 ml 900 ml 850 ml # Voids 0 2 # Bowel Movements 1 2 1 . Laboratory Tests Test 03/27/17 03/28/17 04:23 11:30 White Blood Count 8.0 TH/MM3 10.8 TH/MM3 Red Blood Count 3.40 MIL/MM3 3.63 MIL/MM3 Hemoglobin 9.8 GM/DL 10.4 GM/DL Hematocrit 30.0 % 32.2 % Mean Corpuscular Volume 88.2 FL 88.7 FL Mean Corpuscular Hemoglobin 28.9 PG 28.7 PG Mean Corpuscular Hemoglobin 32.7 % 32.4 % Concent Red Cell Distribution Width 14.2 % 14.3 % Platelet Count 240 TH/MM3 310 TH/MM3 Mean Platelet Volume 6.8 FL 7.3 FL Neutrophils (%) (Auto) 71.4 % Lymphocytes (%) (Auto) 22.8 % Monocytes (%) (Auto) 4.7 % Eosinophils (%) (Auto) 0.7 % Basophils (%) (Auto) 0.4 % Neutrophils # (Auto) 5.7 TH/MM3 Lymphocytes # (Auto) 1.8 TH/MM3 Monocytes # (Auto) 0.4 TH/MM3 Eosinophils # (Auto) 0.1 TH/MM3 Basophils # (Auto) 0.0 TH/MM3 CBC Comment DIFF FINAL Differential Comment Laboratory Tests Test 03/27/17 03/28/17 04:23 11:30 Sodium Level 145 MEQ/L 143 MEQ/L Potassium Level 3.1 MEQ/L 3.6 MEQ/L Chloride Level 111 MEQ/L 110 MEQ/L Carbon Dioxide Level 25.3 MEQ/L 25.2 MEQ/L Anion Gap 9 MEQ/L 8 MEQ/L Blood Urea Nitrogen 7 MG/DL 4 MG/DL Creatinine 0.99 MG/DL 0.80 MG/DL Estimat Glomerular Filtration 62 ML/MIN 79 ML/MIN Rate Random Glucose 106 MG/DL 168 MG/DL Calcium Level 7.6 MG/DL 8.5 MG/DL Magnesium Level 2.2 MG/DL 2.5 MG/DL Iron Level 66 MCG/DL Total Iron Binding Capacity 242 MCG/DL Percent Iron Saturation 27.3 % Ferritin 127 NG/ML Troponin I 0.03 NG/ML Vitamin B12 Level 296 PG/ML Folate 10.1 NG/ML Microbiology Date/Time Procedure Status Source Growth 03/26/17 23:14 - Final Complete Stool Stool NO ENTERIC PATHOGENS DETECTED BY PCR... 03/26/17 23:14 Cryptosporidium Exam - Final Complete Stool Stool NEGATIVE - NO CRYPTOSPORIDIUM ANTIGEN... 03/26/17 23:14 Stool Pus (RADHA) - Final Complete Stool Stool RARE WBC 03/26/17 23:14 Giardia Antigen (RADHA) - Final Complete Stool Stool NEGATIVE - NO GIARDIA ANTIGEN DETECTE... 03/26/17 23:14 Cancelled Stool Stool 03/27/17 23:24 Stool Occult Blood (RADHA) - Final Complete Stool Stool HEMOCCULT POSITIVE Physical Exam ONSTITUTIONAL/GENERAL: This is an obese nourished patient, in no apparent distress. TUBES/LINES/DRAINS: SKIN: No jaundice, rashes, or lesions. Ecchymoses on upper extremities. No wounds seen anteriorly. Skin temperature appropriate. Not diaphoretic. HEAD: Atraumatic. Normocephalic. EYES: Pupils equal and round and reactive. Extraocular motions intact. No scleral icterus. No injection or drainage. Fundi not examined. ENT: Hearing grossly normal. Nose without bleeding or purulent drainage. Throat without visible erythema, exudates, masses, or lesions. NECK: Trachea midline. Supple, nontender. CARDIOVASCULAR: Regular rate and rhythm without murmurs, gallops, or rubs. No JVD. Peripheral pulses symmetric. RESPIRATORY/CHEST: Symmetric, unlabored respirations. Clear to auscultation. Breath sounds equal bilaterally. No wheezes, rales, or rhonchi. GASTROINTESTINAL: Abdomen soft, non-tender, nondistended. No hepato-splenomegaly , or palpable masses. No guarding. Bowel sounds present. GENITOURINARY: Without palpable bladder distension. mild CTA tenderness b/l MUSCULOSKELETAL: Extremities without clubbing, cyanosis, + trace BLE edema. No joint tenderness or effusion noted. No calf tenderness. No mottling or clubbing. LYMPHATICS: No palpable cervical or supraclavicular adenopathy. NEUROLOGICAL: Awake and alert. Motor and sensory grossly within normal limits. Follows commands. Cognitively sharp. Clear speech Moves all extremities. PSYCHIATRIC: No obvious anxiety/depression. no apparent hallucinations or other psychotic thought process. Assessment & Plan Diagnosis: (1) Colitis Plan: CONTINUE FLAGYL continue on dc see script STOOL NEGATIVE (2) Diarrhea in adult patient (3) Sjoegren syndrome (4) Raynauds syndrome (5) Pyelonephritis Plan: dcd zosyn monitor Remarks UA abnormal ? secondary to GN. Can stop Zosyn. Repeat UA Erika Recinos March 28, 2017 17:54
--- NOTE | 2017-03-28 18:54 | HHI.GIFU ---
Subjective Remarks feels ok, she is worried about the hem positive stool results. no diarrhea less abdominal discomfort Objective Vitals I&O Vital Signs Date Time Temp Pulse Resp B/P Pulse Ox O2 Delivery O2 Flow Rate FiO2 03/28/17 16:00 98.2 84 18 135/81 98 03/28/17 12:00 98.6 85 18 133/87 97 03/28/17 08:00 98.3 77 18 145/95 96 03/28/17 04:26 20 03/28/17 00:00 98.3 76 20 133/92 98 Manual Cuff/Auscultation 03/28/17 00:00 98.3 76 20 133/92 98 Manual Cuff/Auscultation 03/27/17 22:25 97 21 03/27/17 20:00 97.2 90 20 117/70 100 Manual Cuff/Auscultation I/O 03/27/17 03/27/17 03/27/17 03/28/17 03/28/17 03/28/17 07:00 15:00 23:00 07:00 15:00 23:00 Intake Total 1886 ml 300 ml 240 ml 2160 ml 720 ml Output Total 950 ml 900 ml 850 ml 400 ml Balance 1886 ml -650 ml -660 ml 1310 ml 320 ml Intake Oral 300 ml 240 ml 480 ml 720 ml IV Total 1886 ml 1680 ml Output Urine Total 950 ml 900 ml 850 ml 400 ml # Voids 0 2 # Bowel Movements 1 2 1 3 Laboratory Laboratory Tests Test 03/28/17 11:30 White Blood Count 10.8 Red Blood Count 3.63 Hemoglobin 10.4 Hematocrit 32.2 Mean Corpuscular Volume 88.7 Mean Corpuscular Hemoglobin 28.7 Mean Corpuscular Hemoglobin 32.4 Concent Red Cell Distribution Width 14.3 Platelet Count 310 Mean Platelet Volume 7.3 Sodium Level 143 Potassium Level 3.6 Chloride Level 110 Carbon Dioxide Level 25.2 Anion Gap 8 Blood Urea Nitrogen 4 Creatinine 0.80 Estimat Glomerular Filtration 79 Rate Random Glucose 168 Calcium Level 8.5 Magnesium Level 2.5 Date/Time Procedure Status Source Growth 03/27/17 23:24 Stool Occult Blood (RADHA) - Final Complete Stool Stool HEMOCCULT POSITIVE 03/26/17 23:14 Cryptosporidium Exam - Final Complete Stool Stool NEGATIVE - NO CRYPTOSPORIDIUM ANTIGEN... 03/26/17 23:14 Stool Pus (RADHA) - Final Complete Stool Stool RARE WBC 03/26/17 23:14 Giardia Antigen (RADHA) - Final Complete Stool Stool NEGATIVE - NO GIARDIA ANTIGEN DETECTE... 03/26/17 23:14 - Final Complete Stool Stool NO ENTERIC PATHOGENS DETECTED BY PCR... 03/26/17 23:14 Cancelled Stool Stool Physical Exam HEENT: Pupils round and reactive to light; normocephalic; atraumatic; no jaundice. Throat is clear. NECK: Neck is supple, no JVD, no lymphadenopathy. CHEST: Chest is clear to auscultation and percussion. CARDIAC: Regular rate and rhythm with no murmur gallop or rubs. ABDOMEN: Soft, nondistended, nontender; no hepatosplenomegaly; bowel sounds are present in all four quadrants. EXTREMITIES: No clubbing, cyanosis, or edema. SKIN: Normal; no rash; no jaundice. BILL CUTTER: No focal deficits; alert and oriented times three. Assessment and Plan Plan patient has Lupus on multiple immune suppressive therapy, possible infections colitis, had colonoscopy negative few months ago. doing better with antibiotic, we will continue current care diet as tolerated. MRCP if ok with Leander Can MD March 28, 2017 18:54
[2017-03-28 21:20] VITALS: O2SAT 97
[2017-03-28] MEDS: OLANZapine 2.5 MG TAB PO SCH (21:32)
[2017-03-28 21:36] VITALS: BP 156/94; PULSE 70; RESP 18; TEMP 97.3; O2SAT 98
[2017-03-28] MEDS: METOPROLOL TARTRATE 25 MG TAB PO SCH (21:36)
[2017-03-29] VITALS: BP 116/78; PULSE 89; RESP 17; TEMP 97.4; O2SAT 94
[2017-03-29] MEDS: metroNIDAZOLE 500 MG TAB PO SCH ×2 (05:22→13:50)
[2017-03-29] MEDS: INSULIN ASPART SUPPLEMENTAL SCALE SQ SCH ×3 (05:24→16:00)
[2017-03-29] MEDS: ONDANSETRON HCL 4 MG/2 ML VIAL IV PUSH PRN ×2 (05:34→13:54)
[2017-03-29] MEDS: MORPHINE SULFATE 4 MG/ML INJ IV PUSH PRN ×2 (05:35→13:54)
[2017-03-29 08:00] VITALS: BP 110/74; PULSE 68; RESP 18; TEMP 97.8; O2SAT 97
[2017-03-29 08:04] LABS: AUTOMATED NEUTROPHIL # 5.6 TH/MM3 (1.8-7.7); BASOPHIL % 0.2 % (0.0-2.0); EOSINOPHIL # 0.1 TH/MM3 (0-0.4); HEMATOCRIT 29.1 % (35.0-46.0); LYMPH % 35.4 % (9.0-44.0); LYMPHOCYTE # 3.4 TH/MM3 (1.0-4.8); MEAN CELL VOLUME 90.3 FL (80.0-100.0); MEAN CORPUSCULAR HEMOGLOBIN 29.8 PG (27.0-34.0); MONO % 5.4 % (0.0-8.0); PLATELET COUNT 263 TH/MM3 (150-450); RED BLOOD COUNT 3.22 MIL/MM3 (4.00-5.30); RED CELL DISTRIBUTION WIDTH 14.6 % (11.6-17.2); WHITE BLOOD COUNT 9.6 TH/MM3 (4.0-11.0)
[2017-03-29 08:10] LABS: HEMO FLAGS DIFF FINAL
[2017-03-29 08:12] LABS: POTASSIUM 3.7 MEQ/L (3.5-5.1)
[2017-03-29 08:21] LABS: BICARBONATE 25.6 MEQ/L (21.0-32.0); MAGNESIUM 2.4 MG/DL (1.5-2.5)
[2017-03-29] MEDS: SODIUM CHLORIDE 0.9% FLUSH 10 ML FLUSH IV FLUSH SCH (09:00)
[2017-03-29] MEDS: HYDROXYCHLOROQUINE SULFATE 200 MG TAB PO SCH (09:00)
[2017-03-29] MEDS: CHOLESTYRAMINE 4 GM PACKET PO SCH (09:11)
[2017-03-29] MEDS: METOPROLOL TARTRATE 25 MG TAB PO SCH (09:11)
[2017-03-29] MEDS: valACYclovir HCL 500 MG TAB PO SCH (09:11)
[2017-03-29] MEDS: DULoxetine HCl DR 30 MG CAP PO SCH (09:11)
[2017-03-29] MEDS: lamoTRIgine 25 MG TAB PO SCH (09:12)
[2017-03-29] MEDS: PRIMIDONE 50 MG TAB PO SCH ×3 (09:12→17:07)
[2017-03-29] MEDS: HYDROCORTISONE SOD SUCCINATE 100 MG VIAL IV PUSH SCH (09:13)
[2017-03-29 12:00] VITALS: BP 112/69; PULSE 70; RESP 18; TEMP 98; O2SAT 98
--- NOTE | 2017-03-29 12:43 | HHI.PR ---
Subjective Remarks Follow-up lupus. States she is feeling better today with improving rash. She is concerned about her urine but she sees a deer farm worker who follows her lupus as well as proteinuria. She wants a repeat urinalysis. She has no new UTI symptoms she has chronic dysuria. Her diarrhea has improved now having formed stools after restarting cholestyramine. She also sees a residential program worker outpatient. Discussed with case management, PT and OT Objective Vitals Vital Signs Date Time Temp Pulse Resp B/P Pulse Ox O2 Delivery O2 Flow Rate FiO2 03/29/17 08:00 97.8 68 18 110/74 97 03/29/17 00:00 97.4 89 17 116/78 94 03/28/17 21:36 97.3 70 18 156/94 98 03/28/17 21:20 97 21 03/28/17 16:00 98.2 84 18 135/81 98 I/O 03/28/17 03/28/17 03/28/17 03/29/17 03/29/17 03/29/17 07:00 15:00 23:00 07:00 15:00 23:00 Intake Total 2160 ml 720 ml 240 ml Output Total 850 ml 400 ml 1000 ml Balance 1310 ml 320 ml -760 ml Intake Oral 480 ml 720 ml 240 ml IV Total 1680 ml Output Urine Total 850 ml 400 ml 1000 ml # Voids 2 2 # Bowel Movements 1 3 Result Diagram: 03/29/17 0715 03/29/17 0715 Imaging Last Impressions Chest X-Ray 03/26/17 0000 Signed Impressions: Service Date/Time: Sunday, March 26, 2017 10:04 - CONCLUSION: No acute cardiopulmonary abnormality is identified. Shady García MD Objective Remarks GENERAL: Well-developed, well-nourished, in no acute distress. Skin: Improving Maculopapular rash in the bilateral cheeks and bilateral upper arms. Palpable minute knots in the right proximal forearm consistent with superficial thrombosis HEENT: Head is normocephalic without any lesions or masses noted. Facial features are symmetric. Eyes: Pupils equal round reactive to light. Extraocular muscles are intact. Conjunctivae were clear. Oropharyngeal: Pharynx without any erythema edema. Tongue is midline without deviation. Buccal mucosa is moist without any masses or lesions NECK: Supple without any masses. Trachea midline no deviation. No JVD, no bruits are appreciated. Cervical lymphadenopathy appreciated. CARDIAC: Regular rate and rhythm. S1/S2 are heard. No murmurs gallops or rubs. LUNGS: Clear to auscultation bilaterally. No wheeze, rhonchi or rales. No use of accessory muscles on inspiration or expiration. ABDOMEN: Soft, nontender. Nondistended. Bowel sounds heard in all 4 quadrants. Negative rebound, negative guarding. EXTREMITIES: No edema, pulses are equal bilaterally. No cyanosis or clubbing NEUROLOGY: Cranial nerves II through XII grossly intact. Muscle strength 5/5 in upper and lower extremities bilaterally. PSYCH: Mood and affect appropriate. Procedures none A/P Problem List: (1) Severe sepsis ICD Code: A41.9 Status: Acute (2) Abdominal pain ICD Code: R10.9 Status: Acute (3) Diarrhea in adult patient ICD Code: R19.7 Status: Acute (4) Lactic acidosis ICD Code: E87.2 Status: Resolved (5) Azotemia ICD Code: R79.89 Status: Resolved (6) Leukocytosis ICD Code: D72.829 Status: Resolved (7) Lupus ICD Code: M32.9 Status: Acute (8) Diabetes ICD Code: E11.9 Status: Chronic (9) Hypertension ICD Code: I10 Status: Chronic Assessment and Plan Severe sepsis Met criteria on admission with leukocytosis, bandemia, tachycardia, lactic acidosis, abdominal pain with an episode of watery diarrhea. Patient was treated empirically with Zosyn and Flagyl. Urinalysis did not indicate any infection. CT the abdomen does not indicate any acute abnormality indicative of infection. Lactic acid level normalized. Infectious disease consult appreciated. - antibiotics per ID switched to by mouth Flagyl. - CellCept on hold" patient refusing to take secondary to ongoing infection Abdominal pain with watery diarrhea Unclear of etiology at this time. Gastroenterology consult appreciated. Possible colitis. CT scan does not indicate any significant abnormality other than 4.1 cm left ovarian cyst, small left inguinal hernia containing fat, small to moderate size hiatal hernia. C diff negative. - Check stool studies to include stool culture, stool WBCs, ova parasite negative to date. - Improving after starting Questran follow up with GI outpatient. Renal insufficiency The pt has been worked up by a deer farm worker and it may be secondary to lupus or diabetes. CT of the abdomen does not indicate any renal abnormality. - S/p IV fluids. Improved. - Avoid nephrotoxins. Diabetes A1c 4.9%. - Accu-Cheks with sliding scale insulin. Hypotension May be s/t infection. On immunosuppressive agents. - Resolved wean stress dose steroids switch to by mouth prednisone 40 mg daily and taper - Restart Lopressor with hold parameters Anemia Chronic. The patient has had red stools. -Guaiac positive. History of hemorrhoids. Recent EGD and colonoscopy unremarkable per patient. GI following. - Follow CBC and transfuse as needed. Stable Weakness Likely secondary to multiple chronic conditions. - PT/ OT. DVT prevention Discontinued Lovenox secondary to bleeding, continue sequential compression devices Discharge Planning Stable for discharge today Problem Qualifiers (1) Abdominal pain: Qualified Code: R10.84 - Generalized abdominal pain (2) Leukocytosis: Qualified Code: D72.825 - Bandemia (3) Lupus: Qualified Code: M32.9 - Systemic lupus erythematosus, unspecified SLE type, unspecified organ involvement status (4) Diabetes: Qualified Code: E11.8 - Type 2 diabetes mellitus with complication, without long-term current use of insulin (5) Hypertension: Qualified Code: I15.9 - Secondary hypertension Morris Garza MD Mar 29, 2017 12:43
--- NOTE | 2017-03-29 12:47 | HHI.DCPOC ---
Discharge Care Plan Diagnosis: (1) Colitis Your Health Problems Are: Difficulty with ADL Exercise Tolerance Goals to Promote Your Health * To prevent worsening of your condition and complications * To maintain your health at the optimal level Directions to Meet Your Goals Take your medications as prescribed Follow your dietary instruction Follow activity as directed Keep your appointments as scheduled Take your immunizations and boosters as scheduled If your symptoms worsen call your PCP, if no PCP go to Urgent Care Center or Emergency Room Smoking is Dangerous to Your Health. Avoid second hand smoke Call the 24-hour hour crisis hotline for domestic abuse at Morris Garza MD Mar 29, 2017 12:47
--- NOTE | 2017-03-29 12:48 | HHI.FF ---
Face to Face Verification Diagnosis: (1) Lupus (2) Colitis Physical Therapy Order: Evaluate and Treat, Improve ambulation, Strength and gait training Occupational Therapy Order: Evaluate and Treat, Gross motor coordination, Fine motor coordination I have seen patient Neeta Cespedes on 03/29/17. My clinical findings support the need for the requested home health care services because: Ltd mobility - disease progression I certify that my clinical findings support that this patient is homebound because: Unsafe to leave home unassisted Need for psychosocial assistance Morris Garza MD Mar 29, 2017 12:48
[2017-03-29] MEDS ORDERED: DEXI60CA PO (14:34)
[2017-03-29] MEDS ORDERED: PRED20 PO (14:34)
--- NOTE | 2017-03-29 14:37 | HHI.DS ---
Discharge Summary Admission Date March 25, 2017 at 20:28 Discharge Date: Mar 29, 2017 Admitting Diagnosis (1) Severe sepsis ICD Code: A41.9 Diagnosis: Principal (2) Abdominal pain ICD Code: R10.9 Diagnosis: Principal (3) Diarrhea in adult patient ICD Code: R19.7 Diagnosis: Principal (4) Lactic acidosis ICD Code: E87.2 Diagnosis: Principal (5) Azotemia ICD Code: R79.89 Diagnosis: Principal (6) Leukocytosis ICD Code: D72.829 Diagnosis: Principal (7) Lupus ICD Code: M32.9 Diagnosis: Secondary (8) Diabetes ICD Code: E11.9 Diagnosis: Secondary (9) Hypertension ICD Code: I10 Diagnosis: Secondary Procedures none Brief History - From Admission Written by Adithya Lynn, acting as scribe for Dr. Ochoa on 03/26/17 at 08: 12. 41-year-old female with rather complex medical history with hypertension, diabetes, lupus, Raynaud syndrome, Sjgren syndrome, on immunosuppressive drugs who presented to ER because of acute worsening of abdominal discomfort. Patient indicates that she was originally treated for her condition Sunday of last week where she went to urgent care center and found to have sinusitis and hematuria. Patient was given a dose of Rocephin and followed with Augmentin. Patient states that her abdominal pain had been tolerable in the lower abdomen until yesterday morning when she was woke from sleep because of severe pain that started in her middle lower back and radiating around both flanks into her lower abdomen. The pain was a 10/10 on a pain scale. She indicates that the urgent care physician notified her that if her pain worsen that she should go to the emergency department. The patient states that the pain was a sharp pain. Without any crescendo type pain. She describes the pain as if she is giving . The patient indicates that she has had associated watery diarrhea, however she does not indicate that there is any foul smell. She has had nausea. Her diarrhea was associated with her bout of vomiting. She denies any fever, chills, hematochezia, melena. With the patient's rather complex autoimmune disorders. She indicates that she is in tune with her symptoms and usually knows when she is developing any type of infections. The patient indicates that she has had history of colitis with hematochezia in the past. She indicates that she just had a colonoscopy done 2 months ago and was told that she had some hemorrhoids. The patient also endorses some chest pain with deep breathing. She says it feels better when she leans forward. The patient had evaluation done emergency department found to have severe sepsis. Patient was admitted to the hospital for further evaluation and management. CBC/BMP: 03/29/17 0715 03/29/17 0715 Significant Findings Laboratory Tests Test 03/26/17 03/27/17 03/28/17 03/29/17 16:30 04:23 11:30 07:15 Troponin I LESS THAN 0.02 NG/ML (0.02-0.05) Red Blood Count 3.40 MIL/MM3 3.63 MIL/MM3 3.22 MIL/MM3 (4.00-5.30) (4.00-5.30) (4.00-5.30) Hemoglobin 9.8 GM/DL 10.4 GM/DL 9.6 GM/DL (11.6-15.3) (11.6-15.3) (11.6-15.3) Hematocrit 30.0 % 32.2 % 29.1 % (35.0-46.0) (35.0-46.0) (35.0-46.0) Mean Platelet Volume 6.8 FL 6.9 FL (7.0-11.0) (7.0-11.0) Neutrophils (%) (Auto) 71.4 % (16.0-70.0) Potassium Level 3.1 MEQ/L (3.5-5.1) Chloride Level 111 MEQ/L 110 MEQ/L 112 MEQ/L (98-107) (98-107) (98-107) Estimat Glomerular Filtration 62 ML/MIN (>89) 79 ML/MIN (>89) Rate Calcium Level 7.6 MG/DL (8.5-10.1) Total Iron Binding Capacity 242 MCG/DL (250-450) Blood Urea Nitrogen 4 MG/DL (7-18) Random Glucose 168 MG/DL (74-106) Sodium Level 146 MEQ/L (136-145) Imaging Last Impressions Chest X-Ray 03/26/17 0000 Signed Impressions: Service Date/Time: Sunday, March 26, 2017 10:04 - CONCLUSION: No acute cardiopulmonary abnormality is identified. Shady García MD PE at Discharge GENERAL: Well-developed, well-nourished, in no acute distress. Skin: Improving Maculopapular rash in the bilateral cheeks and bilateral upper arms. Palpable minute knots in the right proximal forearm consistent with superficial thrombosis HEENT: Head is normocephalic without any lesions or masses noted. Facial features are symmetric. Eyes: Pupils equal round reactive to light. Extraocular muscles are intact. Conjunctivae were clear. Oropharyngeal: Pharynx without any erythema edema. Tongue is midline without deviation. Buccal mucosa is moist without any masses or lesions NECK: Supple without any masses. Trachea midline no deviation. No JVD, no bruits are appreciated. Cervical lymphadenopathy appreciated. CARDIAC: Regular rate and rhythm. S1/S2 are heard. No murmurs gallops or rubs. LUNGS: Clear to auscultation bilaterally. No wheeze, rhonchi or rales. No use of accessory muscles on inspiration or expiration. ABDOMEN: Soft, nontender. Nondistended. Bowel sounds heard in all 4 quadrants. Negative rebound, negative guarding. EXTREMITIES: No edema, pulses are equal bilaterally. No cyanosis or clubbing NEUROLOGY: Cranial nerves II through XII grossly intact. Muscle strength 5/5 in upper and lower extremities bilaterally. PSYCH: Mood and affect appropriate. Hospital Course Severe sepsis Met criteria on admission with leukocytosis, bandemia, tachycardia, lactic acidosis, abdominal pain with an episode of watery diarrhea. Patient was treated empirically with Zosyn and Flagyl. Urinalysis did not indicate any infection. CT the abdomen does not indicate any acute abnormality indicative of infection. Lactic acid level normalized. Infectious disease consult appreciated. - antibiotics per ID switched to by mouth Flagyl. - CellCept on hold" patient refusing to take secondary to ongoing infection Abdominal pain with watery diarrhea Unclear of etiology at this time. Gastroenterology consult appreciated. Possible colitis. CT scan does not indicate any significant abnormality other than 4.1 cm left ovarian cyst, small left inguinal hernia containing fat, small to moderate size hiatal hernia. C diff negative. - Check stool studies to include stool culture, stool WBCs, ova parasite negative to date. - Improving after starting Questran follow up with GI outpatient. 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 CT of the abdomen does not indicate any renal abnormality. - S/p IV fluids. Improved. - Avoid nephrotoxins. Diabetes A1c 4.9%. - Accu-Cheks with sliding scale insulin. Hypotension May be s/t infection. On immunosuppressive agents. - Resolved wean stress dose steroids switch to by mouth prednisone 40 mg daily and taper - Restart Lopressor with hold parameters Anemia Chronic. The patient has had red stools. -Guaiac positive. History of hemorrhoids. Recent EGD and colonoscopy unremarkable per patient. GI following. - Follow CBC and transfuse as needed. Stable Weakness Likely secondary to multiple chronic conditions. - PT/ OT. DVT prevention Discontinued Lovenox secondary to bleeding, continue sequential compression devices PT recommends C PT. Also request OT Pt Condition on Discharge: Stable Discharge Disposition: Disch w/ Home Health Serv Discharge Time: > 30 minutes Discharge Instructions DIET: Follow Instructions for: Heart Healthy Diet Activities you can perform: Regular-No Restrictions Activities to Avoid: Driving AbandoMorris MD Mar 29, 2017 14:36
[2017-03-29] MEDS ORDERED: PANTOPRAZOLE SOD 40 MG DELAYED RELEASE TAB PO SCH (15:00)
[2017-03-29] MEDS ORDERED: METR-1 PO (15:29)
[2017-03-29 16:00] VITALS: BP 160/108; PULSE 80; RESP 17; TEMP 97.9; O2SAT 98
[2017-03-29] MEDS: ACETAMINOPHEN/HYDROcodone 325 MG/5 MG TAB PO PRN (17:13)
[2017-03-29] MEDS ORDERED: HYDR-3533 PO (17:33)
[2017-03-29 17:42] LABS: BLOOD, URINE NEG (NEG); GLUCOSE,URINE NEG (NEG); KETONE, URINE NEG (NEG); NITRITE,URINE NEG (NEG)
[2017-03-29 17:47] LABS: URINE COLOR YELLOW (YELLW/STRAW); WBC, URINE 0-2 /hpf (0-5)
[2017-03-29 17:48] LABS: COMMENT (UR) CULT NOT INDICATED; CULTURE IF INDICATED CULT NOT INDICATED; SQUAMOUS EPITHELIAL CELL URINE 0-5 /hpf (0-5)
[2017-03-30] MEDS ORDERED: predniSONE 20 MG TAB PO SCH (09:00)
== END 2017-03-29 20:30 | disposition home or self-care (01) | DRG 872 ==
LOC: PHEDDLT 20:25 → PH3A 20:28
PROVIDERS: ADMIT Internal Medicine; ATTEND Internal Medicine
DX: A41.9 Sepsis, unspecified organism (principal); E87.2 Acidosis; I10 Essential (primary) hypertension; E11.9 Type 2 diabetes mellitus without complications; D64.9 Anemia, unspecified; N12 Tubulo-interstitial nephritis, not specified as acute or chronic; A09 Infectious gastroenteritis and colitis, unspecified; M32.9 Systemic lupus erythematosus, unspecified; I73.00 Raynaud's syndrome without gangrene; K40.90 Unilateral inguinal hernia, without obstruction or gangrene, not specified as recurrent; K44.9 Diaphragmatic hernia without obstruction or gangrene; K64.9 Unspecified hemorrhoids; N83.202 Unspecified ovarian cyst, left side; R31.9 Hematuria, unspecified; Z79.52 Long term (current) use of systemic steroids; Z90.12 Acquired absence of left breast and nipple
CPT/HCPCS: 71010; 74177; 80048; 80053; 81001; 82272; 82607; 82728; 82746; 82948; 83036; 83540; 83550; 83605; 83690; 83735; 84484; 84703; 85007; 85025; 85027; 85610; 85730; 87040; 87205; 87328; 87329; 87493; 87506; 93005; 96361; 96365; 96375; 96376; J1650; J1720; J1815; J2270; J2405; J2543; J3420; J7030; J7512; Q9967

== ENCOUNTER 2018-02-04 19:09 | Inpatient (IN) | payer BC ==
[~2018-02-04 19:09] MED LIST changes: -ACETAMINOPHEN 325 MG TAB PO PRN; +AMBI10TA PO; +AMBI5TAB PO; -AUGM500T7 PO; -BENL120I IM; +CHOL4POW4 PO; -CHOLPOW PO; -CYMB30CA PO; -DEXILANT PO; +DIAZ10TA PO; -DIAZ5TAB PO; -HYDR-3533 PO; -LAMO25 PO; +LORA-650 PO; +LYRI50CA PO; -MAGNESIUM HYDROXIDE SUSP 30 ML CUP PO PRN; +NEXI40GR PO; +PRED1 PO; -PRED5TAB PO; -PRIM50TA5 PO; -SODIUM CHLOR 0.9% 1000 ML INJ 1,000 ML IV ONE; -SODIUM CHLOR 0.9% 1000 ML INJ 1,000 ML IV SCH; -SODIUM CHLORIDE 0.9% FLUSH 10 ML FLUSH IV FLUSH PRN; +VESI10TA2 PO; -VIST50CA PO; +VOLT100T; +ZOFR4TAB PO; -ZYPR2.5T2 PO
[2018-02-04 20:00] VITALS: BP 136/77; PULSE 92; RESP 18; TEMP 97.6; O2SAT 97
[2018-02-04] MEDS ORDERED: SODIUM CHLOR 0.9% 1000 ML INJ 1,000 ML IV SCH (20:00)
[2018-02-04] MEDS ORDERED: NALOXONE HCL 0.4 MG/ML AMP IV PUSH PRN (20:00)
[2018-02-04] MEDS ORDERED: ACETAMINOPHEN 325 MG TAB PO PRN (20:00)
[2018-02-04] MEDS ORDERED: ACETAMINOPHEN/HYDROcodone 325 MG/5 MG TAB PO PRN (20:15)
[2018-02-04] MEDS ORDERED: PRIM50TA5 PO (22:48)
[2018-02-04] MEDS: SODIUM CHLOR 0.9% 1000 ML INJ 1,000 ML IV SCH (22:53)
[2018-02-05] MEDS: ZOLPIDEM TARTRATE 5 MG TAB PO PRN ×2 (00:03→23:01)
[2018-02-05] MEDS: MYCOPHENOLATE MOFETIL 500 MG TAB PO SCH ×3 (00:03→21:29)
[2018-02-05] MEDS: METOPROLOL TARTRATE 25 MG TAB PO SCH ×3 (00:03→21:14)
[2018-02-05] MEDS: PREGABALIN 25 MG CAP PO SCH ×3 (00:03→21:14)
[2018-02-05] MEDS: ONDANSETRON HCL 4 MG/2 ML VIAL IVP PRN ×4 (00:03→18:53)
[2018-02-05] MEDS: HYDROXYCHLOROQUINE SULFATE 200 MG TAB PO SCH ×3 (00:03→21:14)
[2018-02-05] MEDS: MORPHINE SULFATE 2 MG/ML SYRINGE IV PUSH PRN ×5 (00:04→23:01)
[2018-02-05 04:00] VITALS: BP 112/69; PULSE 73; RESP 18; TEMP 97.1; O2SAT 99
[2018-02-05] MEDS: SODIUM CHLOR 0.9% 1000 ML INJ 1,000 ML IV SCH ×2 (05:40→16:08)
[2018-02-05] MEDS: CHOLESTYRAMINE 4 GM PACKET PO SCH ×2 (07:00→16:08)
[2018-02-05 07:41] LABS: AUTOMATED NEUTROPHIL # 4.5 TH/MM3 (1.8-7.7); BASOPHIL # 0.1 TH/MM3 (0-0.2); BASOPHIL % 0.7 % (0.0-2.0); EOSINOPHIL # 0.1 TH/MM3 (0-0.4); EOSINOPHIL % 1.4 % (0.0-4.0); HEMATOCRIT 34.4 % (35.0-46.0); HEMOGLOBIN 10.9 GM/DL (11.6-15.3); LYMPH % 40.3 % (9.0-44.0); LYMPHOCYTE # 3.5 TH/MM3 (1.0-4.8); MEAN CELL VOLUME 88.3 FL (80.0-100.0); MEAN CORPUSCULAR HEMOGLOBIN 27.9 PG (27.0-34.0); MEAN CORPUSCULAR HGB CONC 31.6 % (32.0-36.0); MEAN PLATELET VOLUME 7.6 FL (7.0-11.0); MONO % 6.1 % (0.0-8.0); MONOCYTE # 0.5 TH/MM3 (0-0.9); NEUT % 51.5 % (16.0-70.0); PLATELET COUNT 311 TH/MM3 (150-450); RED BLOOD COUNT 3.89 MIL/MM3 (4.00-5.30); RED CELL DISTRIBUTION WIDTH 13.8 % (11.6-17.2); WHITE BLOOD COUNT 8.7 TH/MM3 (4.0-11.0)
[2018-02-05 08:00] VITALS: BP 114/79; PULSE 80; RESP 15; TEMP 97.5; O2SAT 94
[2018-02-05 08:01] LABS: CALCIUM 7.9 MG/DL (8.5-10.1)
[2018-02-05 08:02] LABS: BICARBONATE 22.9 MEQ/L (21.0-32.0)
[2018-02-05 08:05] LABS: CREATININE 0.64 MG/DL (0.50-1.00)
[2018-02-05] MEDS ORDERED: predniSONE 1 MG TAB PO SCH (09:00)
[2018-02-05] MEDS: TOLTERODINE TARTRATE 4 MG CAP LA PO SCH ×2 (09:00→09:47)
[2018-02-05] MEDS: SPIRONOLACTONE 50 MG TAB PO SCH ×2 (09:47→18:53)
[2018-02-05] MEDS: PRIMIDONE 50 MG TAB PO SCH ×3 (09:47→18:53)
[2018-02-05] MEDS: DICYCLOMINE HCL 10 MG CAP PO SCH ×3 (09:48→18:53)
[2018-02-05] MEDS: LORATADINE 10 MG TAB PO SCH (09:48)
--- NOTE | 2018-02-05 10:43 | HHI.HP ---
HPI Service [facility] Primary Care Physician Non-Staff Admission Diagnosis Diagnoses: Travel History International Travel<30 Days: No Contact w/Intl Traveler <30 Da: No Traveled to Known Affected Are: No History of Present Illness hx from patient, ER notes from [place] and review of medical records sunday started uti symptoms has hx of sle on immunosuppressants with hx of having diarrhea and uti alternating - 6 moths urine cx done outpatient grew E coli- last cx was a month and a half ago- was on cipro/ augmentin/something else then was treated in clinic with im rocephin aroudn january 18 or so then macrobid diarrhea - but never checked for cdiff but was given cipro/flagyl treatment after that january 18 or so finishing antibiotics, she started having bouts of diarrhea again but more of fecal incontinecence pt also had cholecystectomy- and thus diarrhea was thought to be from that as well by last week, diarrhea was under control this episode, started sunday with burnign , pain , right lower flank pain pain woke her up from sleep has set up with urologist to check on this and was called back from doctor and was told to no foreign object in bladder had cystoscopy and urodynamic studies outpatient- wnl but was found out when she had pressure or so, pt had incontinence - position, bladder position Review of Systems Except as stated in HPI: all other systems reviewed are Neg Past Family Social History Past Medical History malabsorption SLE immunosupression htn type II DM costochondritis with lupus right UE DVT - from iv infiltration- about 1.5 yrs ago ; was on coumadin for 3 months had heavy menstrual bleeds with coumadin therapy requiring blood transfusion Past Surgical History cystoscopies cholecystectomy umbilical hernia repair partial breast sx - for papilloma, benign tonsilectomy Allergies: Coded Allergies: Influenza Virus Vaccines (Verified Allergy, Severe, Anaphylaxis, 02/04/18) mushroom (Verified Allergy, Severe, Anaphylaxis, 02/04/18) gluten (Verified Allergy, Intermediate, N/V/D, 02/04/18) Sulfa (Sulfonamide Antibiotics) (Verified Allergy, Unknown, LUPUS FLARE UP , 02/04/18) Family History mom- thyroid cancer ; heart issues, afib grandmother and aunt from father side- dm father- [place] in his 40s, passed in his 70s from lung cancer Social History no smoking no etoh abuse no drugs Physical Exam Vital Signs Vital Signs Date Time Temp Pulse Resp B/P (MAP) Pulse Ox O2 Delivery O2 Flow Rate FiO2 02/05/18 09:54 18 02/05/18 08:00 97.5 80 15 114/79 (91) 94 02/05/18 04:00 97.1 73 18 112/69 (83) 99 02/04/18 20:00 97.6 92 18 136/77 (96) 97 Physical Exam GENERAL: This is a well-nourished, well-developed patient, in no apparent distress. SKIN: No rashes, ecchymoses or lesions. Cool and dry. HEAD: Atraumatic. Normocephalic. No temporal or scalp tenderness. EYES: No scleral icterus. No injection or drainage. ENT: Nose without bleeding, purulent drainage or septal hematoma. Airway patent. NECK: Trachea midline. No JVD Supple, nontender, no meningeal signs. CARDIOVASCULAR: Regular rate and rhythm without murmurs, gallops, or rubs. RESPIRATORY: Clear to auscultation. Breath sounds equal bilaterally. No wheezes , rales, or rhonchi. GASTROINTESTINAL: Abdomen soft, tenderness at suprapubic, nondistended. No guarding. MUSCULOSKELETAL: Extremities without clubbing, cyanosis, or edema. No calf tenderness. NEUROLOGICAL: Awake and alert. Motor and sensory grossly within normal limits. Normal speech. Laboratory Laboratory Tests Test 02/05/18 04:50 White Blood Count 8.7 Red Blood Count 3.89 Hemoglobin 10.9 Hematocrit 34.4 Mean Corpuscular Volume 88.3 Mean Corpuscular Hemoglobin 27.9 Mean Corpuscular Hemoglobin Concent 31.6 Red Cell Distribution Width 13.8 Platelet Count 311 Mean Platelet Volume 7.6 Neutrophils (%) (Auto) 51.5 Lymphocytes (%) (Auto) 40.3 Monocytes (%) (Auto) 6.1 Eosinophils (%) (Auto) 1.4 Basophils (%) (Auto) 0.7 Neutrophils # (Auto) 4.5 Lymphocytes # (Auto) 3.5 Monocytes # (Auto) 0.5 Eosinophils # (Auto) 0.1 Basophils # (Auto) 0.1 CBC Comment DIFF FINAL Differential Comment Blood Urea Nitrogen 5 Creatinine 0.64 Random Glucose 67 Calcium Level 7.9 Sodium Level 143 Potassium Level 3.2 Chloride Level 111 Carbon Dioxide Level 22.9 Anion Gap 9 Estimat Glomerular Filtration Rate 101 Result Diagram: 02/05/1844902/05/18449 Caprini VTE Risk Assessment Caprini VTE Risk Assessment: Mod/High Risk (score >= 2) Caprini Risk Assessment Model Point Value = 1 Point Value = 2 Point Value = 3 Point Value = 5 Age 41-60 Minor surgery BMI > 25 kg/m2 Swollen legs Varicose veins or History of unexplained or recurrent spontaneous Oral contraceptives or hormone replacement Sepsis (< 1 month) Serious lung disease, including pneumonia (< 1 month) Abnormal pulmonary function Acute myocardial infarction Congestive heart failure (< 1 month) History of inflammatory bowel disease Medical patient at bed rest Age 61-74 Arthroscopic surgery Major open surgery (> 45 min) Laparoscopic surgery (> 45 min) Malignancy Confined to bed (> 72 hours) Immobilizing plaster cast Central venous access Age >= 75 History of VTE Family history of VTE Factor V Leiden Prothrombin [id number] Lupus anticoagulant Anticardiolipin antibodies Elevated serum homocysteine Heparin-induced thrombocytopenia Other congenital or acquired thrombophilia Stroke (< 1 month) Elective arthroplasty Hip, pelvis, or leg fracture Acute spinal cord injury (< 1 month) Prophylaxis Regimen Total Risk Factor Score Risk Level Prophylaxis Regimen 0-1 Low Early ambulation 2 Moderate Order ONE of the following: *Sequential Compression Device (SCD) *Heparin 5000 units SQ BID 3-4 Higher Order ONE of the following medications: *Heparin 5000 units SQ TID *Enoxaparin/Lovenox 40 mg SQ daily (WT < 150 kg, CrCl > 30 mL/min) *Enoxaparin/Lovenox 30 mg SQ daily (WT < 150 kg, CrCl > 10-29 mL/min) *Enoxaparin/Lovenox 30 mg SQ BID (WT < 150 kg, CrCl > 30 mL/min) AND/OR *Sequential Compression Device (SCD) 5 or more Highest Order ONE of the following medications: *Heparin 5000 units SQ TID (Preferred with Epidurals) *Enoxaparin/Lovenox 40 mg SQ daily (WT < 150 kg, CrCl > 30 mL/min) *Enoxaparin/Lovenox 30 mg SQ daily (WT < 150 kg, CrCl > 10-29 mL/min) *Enoxaparin/Lovenox 30 mg SQ BID (WT < 150 kg, CrCl > 30 mL/min) AND *Sequential Compression Device (SCD) Assessment and Plan Assessment and Plan Impression uti- frequent episodes immunosuppresed state bladder spasms- secondary to UTI vs interstitial cystitis vs lupus cystitis malabsorption SLE immunosupression htn type II DM costochondritis with lupus right UE DVT - from iv infiltration- about 1.5 yrs ago ; was on coumadin for 3 months had heavy menstrual bleeds with coumadin therapy requiring blood transfusion Plan: ct rocephin for now resume home dose of immuotherapy will folow cx ID consult Urology consult US of RUE to r/o dvt as pt c/o pain and swelling and had prior hx of dvt there changed to full admit Discussed Condition With patient Michele Thompson MD Feb 05, 2018 10:43
[2018-02-05] MEDS ORDERED: GLUCAGON 1 MG/ML VIAL OTHER PRN (11:15)
[2018-02-05] MEDS ORDERED: DIAZEPAM 10 MG TAB PO PRN (11:15)
[2018-02-05] MEDS ORDERED: PANTOPRAZOLE SOD 40 MG DELAYED RELEASE TAB PO ONE (11:15)
[2018-02-05] MEDS ORDERED: DEXTROSE 50% IN WATER 50 ML VIAL(D50) IV PUSH PRN (11:15)
[2018-02-05] MEDS: INSULIN ASPART SUPPLEMENTAL SCALE SQ SCH ×3 (11:17→21:00)
[2018-02-05 12:00] VITALS: BP 114/77; PULSE 71; RESP 16; TEMP 98.6; O2SAT 97
--- NOTE | 2018-02-05 12:03 | RADRPT ---
EXAM DATE/TIME: 02/05/2018 11:16 [facility] COMPARISON: No previous studies available for comparison. INDICATIONS : Right arm swelling. MEDICAL HISTORY : Hypercholesterolemia. Gastroesophageal reflux disease. Diabetes mellitus type 2. Migraine. Lupus. Migdalia motherapy, cellcept. SURGICAL HISTORY : Tonsillectomy. Cholecystectomy. Hernia repair. ENCOUNTER: Initial ACUITY: 1 day PAIN SCORE: 0/10 LOCATION: Right arm. FINDINGS: There is spontaneous flow documented in the brachial, basilic, cephalic, axillary, and subclavian vei ns. The vessels are compressible and augmentation response is documented. No filling defects are se en. The flow is phasic with respiration. Direction of flow in the jugular vein is caudal. CONCLUSION: No evidence of deep venous thrombosis within the right upper extremity. Hang Gilman MD on February 05, 2018 at 12:00 Board Certified Radiologist. This report was verified electronically.
[2018-02-05] MEDS: cefTRIAXone INJ 1,000 MG in SODIUM CHLORIDE 0.9% INJ 100 ML IV SCH (13:00)
[2018-02-05 16:00] VITALS: BP 102/69; PULSE 75; RESP 16; TEMP 98
--- NOTE | 2018-02-05 17:59 | PD.CONS ---
[facility] Service Urology Consult Requested By Dr. Thompson Reason for Consult Recurrent UTI's Primary Care Physician Non-Staff Diagnosis: History of Present Illness 42-year-old female with history systemic lupus erythematosus and recurrent urinary tract infections. Patient is status post a full urologic and TRANSPORTATION AIDE workup with the only abnormal finding being intermittent incomplete bladder emptying and mild cystocele formation. Patient is now admitted for management of a urinary tract infection. She reports frustration as she was not started on oral therapy until her symptoms became quite significant. At the time of consultation the patient reports overall symptomatic improvement while on the intravenous antibiotics. She did have a recent CT scan of the abdomen and pelvis that failed to demonstrate any significant urologic pathology. Review of Systems Constitutional: DENIES: Fever, Chills Cardiovascular: DENIES: Chest pain Genitourinary: COMPLAINS OF: Dysuria, DENIES: Hematuria Musculoskeletal: DENIES: Back pain Except as stated in HPI: all other systems reviewed are Neg Past Family Social History Past Medical History Systemic lupus erythematosus Hypertension Diabetes mellitus Past Surgical History Status post negative breast biopsy Status post cholecystectomy Status post tonsillectomy Reported Medications Refer to EMR Allergies: Coded Allergies: Influenza Virus Vaccines (Verified Allergy, Severe, Anaphylaxis, 02/04/18) mushroom (Verified Allergy, Severe, Anaphylaxis, 02/04/18) gluten (Verified Allergy, Intermediate, N/V/D, 02/04/18) Sulfa (Sulfonamide Antibiotics) (Verified Allergy, Unknown, LUPUS FLARE UP , 02/04/18) Active Ordered Medications Refer to EMR Family History Mother with history thyroid cancer and atrial fibrillation Father with history coronary artery disease and lung cancer Grandmother and aunt with history diabetes mellitus Social History Denies tobacco, alcohol or intravenous drug abuse Physical Exam Vital Signs Date Time Temp Pulse Resp B/P (MAP) Pulse Ox O2 Delivery O2 Flow Rate FiO2 02/05/18 12:00 98.6 71 16 114/77 (89) 97 02/05/18 11:17 18 02/05/18 09:54 18 02/05/18 08:00 97.5 80 15 114/79 (91) 94 02/05/18 04:00 97.1 73 18 112/69 (83) 99 02/04/18 20:00 97.6 92 18 136/77 (96) 97 Physical Exam GENERAL: This is a well-nourished, well-developed patient, in no apparent distress. SKIN: No rashes, ecchymoses or lesions. Cool and dry. HEAD: Atraumatic. Normocephalic. No temporal or scalp tenderness. EYES: Pupils equal round and reactive. Extraocular motions intact. No scleral icterus. No injection or drainage. ENT: Nose without bleeding, purulent drainage or septal hematoma. Throat without erythema, tonsillar hypertrophy or exudate. Uvula midline. Airway patent. NECK: Trachea midline. No JVD or lymphadenopathy. Supple, nontender, no meningeal signs. GASTROINTESTINAL: Abdomen soft, non-tender, nondistended. No hepato-splenomegaly , or palpable masses. No guarding. MUSCULOSKELETAL: Extremities without clubbing, cyanosis, or edema. No joint tenderness, effusion, or edema noted. No calf tenderness. Negative Homans sign bilaterally. NEUROLOGICAL: Awake and alert. Cranial nerves II through XII intact. Motor and sensory grossly within normal limits. Five out of 5 muscle strength in all muscle groups. Normal speech. Lab results reviewed: Yes Laboratory Tests Test 02/05/18 04:50 White Blood Count 8.7 Red Blood Count 3.89 Hemoglobin 10.9 Hematocrit 34.4 Mean Corpuscular Volume 88.3 Mean Corpuscular Hemoglobin 27.9 Mean Corpuscular Hemoglobin Concent 31.6 Red Cell Distribution Width 13.8 Platelet Count 311 Mean Platelet Volume 7.6 Neutrophils (%) (Auto) 51.5 Lymphocytes (%) (Auto) 40.3 Monocytes (%) (Auto) 6.1 Eosinophils (%) (Auto) 1.4 Basophils (%) (Auto) 0.7 Neutrophils # (Auto) 4.5 Lymphocytes # (Auto) 3.5 Monocytes # (Auto) 0.5 Eosinophils # (Auto) 0.1 Basophils # (Auto) 0.1 CBC Comment DIFF FINAL Differential Comment Blood Urea Nitrogen 5 Creatinine 0.64 Random Glucose 67 Calcium Level 7.9 Sodium Level 143 Potassium Level 3.2 Chloride Level 111 Carbon Dioxide Level 22.9 Anion Gap 9 Estimat Glomerular Filtration Rate 101 Result Diagram: 02/05/18 0450 02/05/18 0450 Personally reviewed images: Yes Imaging Last Impressions Upper Extremity Ultrasound 02/05/18 0000 Signed Impressions: Service Date/Time: Monday, February 05, 2018 11:16 - CONCLUSION: No evidence of deep venous thrombosis within the right upper extremity. Hang Gilman MD Assessment and Plan Assessment and Plan UROLOGIC IMPRESSION: 1. Recurrent UTI's with history cystocele and incomplete bladder emptying 2. S/P full Urologic and TRANSPORTATION AIDE w/u 3. Presently admitted with UTI RECOMMENDATIONS: 1. Agree with present management of UTI 2. Pt. to f/u with her established Urologist after hospital discharge 3. Discussed possible benefit cystocele reduction to facilitate bladder emptying 4, Will be available as needed Jani Cronin MD Feb 05, 2018 17:59
[2018-02-05 20:00] VITALS: BP 102/62; PULSE 76; RESP 18; TEMP 97.8; O2SAT 98
[2018-02-05 20:15] VITALS: PULSE 77
[2018-02-06] VITALS: BP 96/59; PULSE 70; RESP 18; TEMP 97; O2SAT 97
[2018-02-06 04:00] VITALS: BP 104/66; PULSE 70; RESP 18; TEMP 97.3; O2SAT 97
[2018-02-06] MEDS: SODIUM CHLOR 0.9% 1000 ML INJ 1,000 ML IV SCH ×2 (05:12→11:26)
[2018-02-06] MEDS: CHOLESTYRAMINE 4 GM PACKET PO SCH (06:34)
[2018-02-06] MEDS: ONDANSETRON HCL 4 MG/2 ML VIAL IVP PRN (06:54)
[2018-02-06] MEDS: MORPHINE SULFATE 2 MG/ML SYRINGE IV PUSH PRN ×2 (06:54→11:09)
[2018-02-06] MEDS: INSULIN ASPART SUPPLEMENTAL SCALE SQ SCH ×2 (07:59→11:17)
[2018-02-06 08:00] VITALS: BP 121/78; PULSE 67; RESP 14; TEMP 97.8; O2SAT 95
[2018-02-06] MEDS: PREGABALIN 25 MG CAP PO SCH (08:36)
[2018-02-06] MEDS: METOPROLOL TARTRATE 25 MG TAB PO SCH (08:40)
[2018-02-06] MEDS: TOLTERODINE TARTRATE 4 MG CAP LA PO SCH (08:40)
[2018-02-06] MEDS: DICYCLOMINE HCL 10 MG CAP PO SCH ×2 (08:40→13:48)
[2018-02-06] MEDS: HYDROXYCHLOROQUINE SULFATE 200 MG TAB PO SCH (08:40)
[2018-02-06] MEDS: MYCOPHENOLATE MOFETIL 500 MG TAB PO SCH (08:41)
[2018-02-06] MEDS: SPIRONOLACTONE 50 MG TAB PO SCH (08:41)
[2018-02-06] MEDS: LORATADINE 10 MG TAB PO SCH (08:41)
[2018-02-06] MEDS: PRIMIDONE 50 MG TAB PO SCH ×2 (08:42→13:47)
[2018-02-06] MEDS ORDERED: predniSONE 1 MG TAB PO SCH (09:00)
[2018-02-06] MEDS ORDERED: PANTOPRAZOLE SOD 40 MG DELAYED RELEASE TAB PO SCH (09:00)
[2018-02-06] MEDS: cefTRIAXone INJ 1,000 MG in SODIUM CHLORIDE 0.9% INJ 100 ML IV SCH (11:12)
--- NOTE | 2018-02-06 11:32 | HHI.DCPOC ---
Discharge Care Plan Diagnosis: (1) Urinary tract infection Goals to Promote Your Health * To prevent worsening of your condition and complications * To maintain your health at the optimal level Directions to Meet Your Goals Take your medications as prescribed Follow your dietary instruction Follow activity as directed Keep your appointments as scheduled Take your immunizations and boosters as scheduled If your symptoms worsen call your PCP, if no PCP go to Urgent Care Center or Emergency Room Smoking is Dangerous to Your Health. Avoid second hand smoke Call the 24-hour hour crisis hotline for domestic abuse at Adithya Lynn Feb 06, 2018 11:32
[2018-02-06 12:00] VITALS: BP 162/103; PULSE 80; RESP 19; TEMP 98.2; O2SAT 100
[2018-02-06 14:07] VITALS: BP 135/84
--- NOTE | 2018-02-06 14:29 | HHI.DS ---
Discharge Summary Admission Date Feb 05, 2018 at 11:20 Discharge Date: Feb 06, 2018 Admitting Diagnosis Recurrent urinary tract infection (1) Urinary tract infection ICD Code: N39.0 - Urinary tract infection, site not specified Procedures None Brief History - From Admission sunday started uti symptoms has hx of sle on immunosuppressants with hx of having diarrhea and uti alternating - 6 moths urine cx done outpatient grew E coli- last cx was a month and a half ago- was on cipro/ augmentin/something else then was treated in clinic with im shameka haywood january 18 or so then macrobid diarrhea - but never checked for cdiff but was given cipro/flagyl treatment after that january 18 or so finishing antibiotics, she started having bouts of diarrhea again but more of fecal incontinecence pt also had cholecystectomy- and thus diarrhea was thought to be from that as well by last week, diarrhea was under control this episode, started sunday with burnign , pain , right lower flank pain pain woke her up from sleep has set up with urologist to check on this and was called back from doctor and was told to no foreign object in bladder had cystoscopy and urodynamic studies outpatient- wnl but was found out when she had pressure or so, pt had incontinence - position, bladder position CBC/BMP: 02/05/18 0450 02/05/18 0450 Significant Findings Laboratory Tests Test 02/05/18 04:50 Red Blood Count 3.89 MIL/MM3 (4.00-5.30) Hemoglobin 10.9 GM/DL (11.6-15.3) Hematocrit 34.4 % (35.0-46.0) Mean Corpuscular Hemoglobin Concent 31.6 % (32.0-36.0) Blood Urea Nitrogen 5 MG/DL (7-18) Random Glucose 67 MG/DL (74-106) Calcium Level 7.9 MG/DL (8.5-10.1) Potassium Level 3.2 MEQ/L (3.5-5.1) Chloride Level 111 MEQ/L (98-107) Imaging Last Impressions Upper Extremity Ultrasound 02/05/18 0000 Signed Impressions: Service Date/Time: Monday, February 05, 2018 11:16 - CONCLUSION: No evidence of deep venous thrombosis within the right upper extremity. Hang Gilman MD PE at Discharge GENERAL: Well-developed, well-nourished, in no acute distress. alert and orientated HEENT: Head is normocephalic without any lesions or masses noted. Facial features are symmetric. Eyes: Extraocular muscles are intact. Conjunctivae were clear. NECK: Supple without any masses. Trachea midline no deviation. No JVD, CARDIAC: Regular rhythm, regular rate. S1/S2 are heard. No murmurs gallops or rubs. LUNGS: Clear to auscultation bilaterally. No wheeze, rhonchi or rales. No use of accessory muscles on inspiration or expiration. ABDOMEN: Soft, nontender. Nondistended. Bowel sounds heard in all 4 quadrants. No organomegaly or masses. Negative rebound, negative guarding EXTREMITIES: No edema, pulses are equal bilaterally. No cyanosis or clubbing NEUROLOGY: Mood and affect appear appropriate. Cranial nerves II through XII grossly intact. Moving all extremities, speech is clear Hospital Course 42-year-old female who presented originally to the emergency department because of urinary tract symptoms with frequency, urgency for 5 days. Patient indicates that she does have lupus and on prednisone with immunosuppression. She does have rather complex support system in her home city with primary medical doctor, director of orthopedics, infectious disease physician, urologist. She states that she tried to get herself treated by her urologist, however he did not pursue a urinalysis and was trying to treat her pain. Patient was using [id number] Pyridium for the burning and frequency. She states that she had a appointment with her infectious disease Dr. approximately 1 week ago, however she did not have symptoms at that time. Patient did not contact any of her doctors prior to coming to the emergency department. She presented emergency department with abnormal urinalysis which appear to be orange coloration contaminated with Pyridium. Culture did indicate Klebsiella pneumonia infection which is sensitive to Rocephin. Patient has had 3 doses of Rocephin. They must have been mentioned to the patient that she may have incomplete emptying due to her lupus. When patient got admitted admitting physician requested urology consultation as well as infectious disease consultation. Urologist indicated the patient should follow-up with her established urologist after hospital discharge. There is a possible benefit of a cystocele reduction to facilitate bladder emptying. Infectious disease was consulted to evaluate the patient for antibiotic recommendations and duration. Patient is overly concerned about her medical condition and very histrionic about her condition, symptoms, side effects of medications. Presently she is clinically stable. Discussed with infectious disease who indicates that patient may be discharged on Augmentin 875 mg PO twice daily Pt Condition on Discharge: Stable Discharge Disposition: Discharge Home Discharge Time: > 30 minutes Discharge Instructions DIET: Follow Instructions for: Heart Healthy Diet, Diabetic Diet Activities you can perform: Regular-No Restrictions Follow up Referrals: PCP Follow-up - 1 Week New Medications: Amoxicillin-Clavulanate (Augmentin) 875-125 Mg Tab 1 TAB PO BID for Infection, #20 TAB 0 Refills Phenazopyridine (Pyridium) 100 Mg Tab 100 MG PO Q8H PRN for DYSURIA for 2 Days, #6 TAB 0 Refills Continued Medications: Cholestyramine (Cholestyramine) 4 Gm/Pkt Powd 4 GM PO BID for Dyslipidemia, #1 BOX 0 Refills 1 packet contains 4 grams of cholestyramine. Diazepam (Diazepam) 10 Mg Tab 10 MG PO HS PRN for INSOMNIA, TAB 0 Refills Diclofenac Sodium (Voltaren-Xr) 100 Mg Tab.er.24h TID Dicyclomine (Dicyclomine) 10 Mg Cap 10 MG PO TID for Bowel Management, CAP 0 Refills Esomeprazole (Nexium) 40 Mg Pkt 40 MG PO DAILY Hydroxychloroquine (Plaquenil) 200 Mg Tab 200 MG PO BID, #60 TAB 0 Refills Take with food Loratadine (Allergy Relief) 10 Mg Tab 10 MG PO DAILY, TAB Metformin (Metformin) 1,000 Mg Tab 1000 MG PO BIDPC for Blood Sugar Management, #60 TAB 0 Refills With meals Metoprolol Tartrate (Metoprolol Tartrate) 25 Mg Tab 25 MG PO BID, #60 TAB 0 Refills Mycophenolate (Cellcept) 500 Mg Tab 500 MG PO BID for Immunosuppression, #120 TAB 0 Refills Ondansetron (Zofran) 4 Mg Tab 4 MG PO Q6HR PRN for NAUSEA OR VOMITING, #12 TAB 0 Refills Prednisone (Prednisone) 1 Mg Tab 6 MG PO DAILY, TAB 0 Refills Pregabalin (Lyrica) 50 Mg Cap 50 MG PO BID, CAP 0 Refills Primidone (Primidone) 50 Mg Tab 50 MG PO TID for Control Seizures, #60 TAB 0 Refills Solifenacin (Vesicare) 10 Mg Tab 10 MG PO DAILY for Urinary Symptom Managemen, #30 TAB 0 Refills Spironolactone (Spironolactone) 50 Mg Tab 50 MG PO BIDPC, #60 TAB 0 Refills Tramadol (Tramadol) 50 Mg Tab 50 MG PO BID PRN for PAIN, TAB 0 Refills Valacyclovir (Valacyclovir) 500 Mg Tab 500 MG PO DAILY for Mgmt Viral Infection, #30 TAB 0 Refills Zolpidem (Ambien) 5 Mg Tab 5 MG PO HS PRN for INSOMNIA, TAB 0 Refills Adithya Lynn Feb 06, 2018 14:29
[2018-02-06 15:05] VITALS: PULSE 77
[2018-02-06] MEDS ORDERED: AUGM875T3 PO (16:43)
--- NOTE | 2018-02-06 16:53 | PD.ID.CON ---
History of Present Illness Service ID Consult Requested By Dr Thompson Reason for Consult UTI Primary Care Physician Non-Staff Diagnoses: History of Present Illness 42 yo female with lupus, on cellcept, prednosone 7 mg, TNF inhibitor (self reported) presented with suprapubic discomfort H/o recurrent urinary tract infections with intermittent incomplete bladder emptying and mild cystocele formation. Mild pyuria in UA Clx with Kleb pneumo sensitivities noted Pt is on recoepnin She also reports chtronic diarrhea with negative w/u Currently constipated Mild lactic acidosis on admission Review of Systems Constitutional: COMPLAINS OF: Fever, Chills Genitourinary: COMPLAINS OF: Urinary frequency, Urgency, Dysuria Except as stated in HPI: all other systems reviewed are Neg Past Family Social History Allergies: Coded Allergies: Influenza Virus Vaccines (Verified Allergy, Severe, Anaphylaxis, 02/04/18) mushroom (Verified Allergy, Severe, Anaphylaxis, 02/04/18) gluten (Verified Allergy, Intermediate, N/V/D, 02/04/18) Sulfa (Sulfonamide Antibiotics) (Verified Allergy, Unknown, LUPUS FLARE UP , 02/04/18) Past Medical History malabsorption SLE immunosupression htn type II DM costochondritis with lupus right UE DVT - from iv infiltration- about 1.5 yrs ago ; was on coumadin for 3 months had heavy menstrual bleeds with coumadin therapy requiring blood transfusion Past Surgical History cystoscopies cholecystectomy umbilical hernia repair partial breast sx - for papilloma, benign tonsilectomy Active Ordered Medications Medications where reviewed in EMR Antibiotics Include: CFTX Family History mom- thyroid cancer ; heart issues, afib grandmother and aunt from father side- dm father- [place] in his 40s, passed in his 70s from lung cancer Social History no smoking no etoh abuse no drugs Physical Exam Vital Signs Vital Signs Date Time Temp Pulse Resp B/P (MAP) Pulse Ox O2 Delivery O2 Flow Rate FiO2 02/06/18 15:05 77 02/06/18 14:07 135/84 (101) 02/06/18 12:00 98.2 80 19 162/103 (122) 100 02/06/18 08:00 97.8 67 14 121/78 (92) 95 02/06/18 04:00 97.3 70 18 104/66 (79) 97 02/06/18 00:00 97.0 70 18 96/59 (71) 97 02/05/18 20:15 77 02/05/18 20:00 97.8 76 18 102/62 (75) 98 Physical Exam CONSTITUTIONAL/GENERAL: This is an obese female patient, in no apparent distress. TUBES/LINES/DRAINS: SKIN: No jaundice, rashes, or lesions. Skin temperature appropriate. Not diaphoretic. HEAD: Atraumatic. Normocephalic. EYES: Pupils equal and round and reactive. Extraocular motions intact. No scleral icterus. No injection or drainage. Fundi not examined. ENT: Hearing grossly normal. Nose without bleeding or purulent drainage. Throat without visible erythema, exudates, masses, or lesions. NECK: Trachea midline. Supple, nontender. No palpable thyroid enlargement or nodularity. CARDIOVASCULAR: Regular rate and rhythm without murmurs, gallops, or rubs. No JVD. Peripheral pulses symmetric. RESPIRATORY/CHEST: Symmetric, unlabored respirations. Clear to auscultation. Breath sounds equal bilaterally. No wheezes, rales, or rhonchi. GASTROINTESTINAL: Abdomen soft, non-tender, nondistended. No hepato-splenomegaly , or palpable masses. No guarding. Bowel sounds present. GENITOURINARY: Without palpable bladder distension. Mild suprapubic tenderness to palpation MUSCULOSKELETAL: Extremities without clubbing, cyanosis, or edema. No joint tenderness or effusion noted. No calf tenderness. No mottling or clubbing. LYMPHATICS: No palpable cervical or supraclavicular adenopathy. NEUROLOGICAL: Awake and alert. Motor and sensory grossly within normal limits. Follows commands. Clear speech. Moves all extremities. PSYCHIATRIC: No obvious anxiety/depression. no apparent hallucinations or other psychotic thought process. Result Diagram: 02/05/18 0450 02/05/18 0450 Imaging Last Impressions Upper Extremity Ultrasound 02/05/18 0000 Signed Impressions: Service Date/Time: Monday, February 05, 2018 11:16 - CONCLUSION: No evidence of deep venous thrombosis within the right upper extremity. Hang Gilman MD Assessment and Plan Assessment and Plan UTI, complicated Kleb pneumo - allergic to bactrim - refused cipro Immnosuppresed 10 days of AUgmentin 875 bid Discussed Condition With pt Stacey Paulino MD Feb 06, 2018 16:53
[2018-02-06] MEDS ORDERED: PHEN0.4T PO (17:18)
== END 2018-02-06 18:20 | disposition home or self-care (01) | DRG 690 ==
LOC: PHEDDLT 19:09 → PHEDA 19:10 → PH3A 19:10 → UNDOADMOB 19:10 → OBSVTOIN 02-05 11:20 → PH3A 02-05 16:38
PROVIDERS: ADMIT Hospitalist; ATTEND Hospitalist
DX: N39.0 Urinary tract infection, site not specified (principal); E87.2 Acidosis; M32.9 Systemic lupus erythematosus, unspecified; N32.89 Other specified disorders of bladder; I10 Essential (primary) hypertension; E11.9 Type 2 diabetes mellitus without complications; B96.1 Klebsiella pneumoniae [K. pneumoniae] as the cause of diseases classified elsewhere; K90.9 Intestinal malabsorption, unspecified; R33.9 Retention of urine, unspecified; N81.10 Cystocele, unspecified; Z79.84 Long term (current) use of oral hypoglycemic drugs; Z86.718 Personal history of other venous thrombosis and embolism; Z87.440 Personal history of urinary (tract) infections; Z88.2 Allergy status to sulfonamides
CPT/HCPCS: 74177; 80048; 80053; 81001; 82948; 83605; 84703; 85025; 87040; 87077; 87086; 87186; 93971; 96360; 96361; 96365; 96375; 96376; G0378; J0696; J2270; J2405; J7030; J7512; J7517; Q9967